=== PATIENT | male | born 1935 | race Caucasian/White ===

== ENCOUNTER 2016-07-28 16:15 | Inpatient (IN) | payer MEDICARE, BC ==
[2016-07-28] MEDS ORDERED: FUROSEMIDE 10 MG/ML 4 ML VIAL IV STA (16:38)
--- NOTE | 2016-07-28 16:46 | ED ---
SOB HPI - General Chief Complaint: Shortness of Breath Stated Complaint: SOB, EDEMA Time Seen by Provider: 07/28/16 16:29 Source: patient Mode of arrival: EMS Limitations: altered mental status, physical limitation - History of Present Illness Initial Comments: Presented with shortness of breath and confusion his caregiver noticed that he has gained 37 pounds of weight over the last few weeks and he has a massive swelling of his lower extremities as well as swelling of his abdomen he does have a history of heart disease as well as heart valve disease he status post surgery as well. Denies any chest pain he denies any pleuritic chest pain denies any fever no chills he is not coughing up a bunch of phlegm. No abdominal pain no constipation or diarrhea no frequency urgency dysuria his legs are swollen bilaterally and he said it's chronic - Related Data Home Medications Medication Instructions Recorded Confirmed Allopurinol [Zyloprim] 300 mg PO DAILY 06/06/16 07/28/16 Ascorbic Acid [Vitamin C] 1,000 mg PO HS 06/06/16 07/28/16 Carvedilol 3.125 mg PO DAILY 06/06/16 07/28/16 Cholecalciferol [Vitamin D3] 1,000 unit PO DAILY 06/06/16 07/28/16 Acetaminophen Tab [Tylenol Tab] 650 mg PO Q4H PRN 07/28/16 07/28/16 Aspirin 81 mg PO HS 07/28/16 07/28/16 Bisacodyl 10 mg RECTAL DAILY PRN 07/28/16 07/28/16 Cyanocobalamin [Vitamin B-12] 500 mcg PO HS 07/28/16 07/28/16 Ferrous Sulfate [Feosol] 325 mg PO TID@0700,1200,1700 07/28/16 07/28/16 Furosemide [Lasix] 60 mg PO BID 07/28/16 07/28/16 Ipratropium-Albuterol Nebulize 3 ml INHALATION RT-Q6H PRN 07/28/16 07/28/16 [Duoneb 0.5 mg-3 mg/3 ml Soln] Levothyroxine Sodium [Levoxyl] 50 mcg PO DAILY 07/28/16 07/28/16 Lidocaine 5% Oint [Xylocaine 5% 1 applic TOPICAL TID 07/28/16 07/28/16 Oint] Melatonin 3 mg PO HS 07/28/16 07/28/16 Nasal Wash 3 spray EA NOSTRIL BID 07/28/16 07/28/16 Nitroglycerin Sl Tabs [Nitrostat] 0.4 mg SUBLINGUAL Q5M PRN 07/28/16 07/28/16 Potassium Chloride [Klor-Con 20] 20 meq PO BID 07/28/16 07/28/16 Sennosides [Senna] 8.6 mg PO DAILY PRN 07/28/16 07/28/16 Warfarin Sodium [Coumadin] 4 mg PO HS 07/28/16 07/28/16 guaiFENesin SYRUP 100MG/5ML 200 mg PO Q6H 07/28/16 07/28/16 [Robitussin] Allergies Allergy/AdvReac Type Severity Reaction Status Date / Time egg Allergy Unknown Verified 07/28/16 16:30 peanut Allergy Unknown Verified 07/28/16 16:30 Penicillins Allergy Unknown Verified 07/28/16 16:30 Review of Systems ROS Statement: Those systems with pertinent positive or pertinent negative responses have been documented in the HPI. ROS Other: All systems not noted in ROS Statement are negative. Past Medical History Past Medical History: Atrial Fibrillation, Heart Failure, Renal Disease, Skin Disorder Additional Past Medical History / Comment(s): shingles (healed) History of Any Multi-Drug Resistant Organisms: None Reported Past Surgical History: Cardiac Valve Replacement Additional Past Surgical History / Comment(s): cardiac valve replacement Past Anesthesia/Blood Transfusion Reactions: No Reported Reaction Past Psychological History: No Psychological Hx Reported Smoking Status: Never smoker Past Alcohol Use History: Rare Past Drug Use History: None Reported - Past Family History Father Family Medical History: Congestive Heart Failure (CHF) General Exam - General Exam Comments Initial Comments: General: The patient is awake and alert, in mild distress, GSS is 15. Skin: Skin is warm and dry and no rashes or lesions are noted. Eye: Pupils are equal, round and reactive to light, extra-ocular movements are intact; there is normal conjunctiva bilaterally. Ears, nose, mouth and throat: There are moist mucous membranes and no oral lesions on the trachea is midline. Neck: The neck is supple, there is no tenderness Cardiovascular: S1 and S2 are irregularly irregular Respiratory: To auscultation bilateral, raccoons at the bases Gastrointestinal: Soft, seems distended, there is a lot of edema Back: There is no tenderness to palpation in the midline. There is no obvious deformity. Musculoskeletal: +3 to +4 Emad of the bilateral legs Neurological: CN II-XII intact, Cranial nerves III through XII are intact. There are no obvious motor or sensory deficits. Coordination appears grossly intact. Speech is normal. Psychiatric: Cooperative, appropriate mood & affect, normal judgment. Limitations: altered mental status, physical limitation Course Vital Signs 07/28/16 07/28/16 07/28/16 16:18 17:33 17:43 Temperature 96.9 F L Pulse Rate 80 78 Pulse Rate [ 78 Solution Engineer ] Respiratory 18 20 18 Rate Blood Pressure 93/51 105/65 O2 Sat by Pulse 97 91 L Oximetry 07/28/16 07/28/16 19:09 20:04 Temperature Pulse Rate 72 79 Pulse Rate [ Solution Engineer ] Respiratory 16 20 Rate Blood Pressure 99/66 106/83 O2 Sat by Pulse 94 L 95 Oximetry KG is atrial fibrillation now Ms. Drew rate is 73 his MD interval is, do QRS duration is 156 QT/QTc is 440/484, this EKG was compared with the old EKG this is a right bundle branch block and left posterior fascicular block as well his EKG is quite similar to his old EKG which is from changes noticed Medical Decision Making - Lab Data Result diagrams: 07/28/16 16:22 07/28/16 16:22 Lab Results 07/28/16 07/28/16 07/28/16 Range/Units 16:22 16:22 16:22 WBC 5.5 (3.8-10.6) k/uL RBC 2.52 L (4.30-5.90) m/uL Hgb 8.2 L (13.0-17.5) gm/dL Hct 26.9 L (39.0-53.0) % MCV 106.9 H D (80.0-100.0) fL MCH 32.5 (25.0-35.0) pg MCHC 30.4 L (31.0-37.0) g/dL RDW 24.5 H (11.5-15.5) % Plt Count 211 (150-450) k/uL Neutrophils % 63 % Lymphocytes % 18 % Monocytes % 8 % Eosinophils % 6 % Basophils % 1 % Neutrophils # 3.4 (1.3-7.7) k/uL Lymphocytes # 1.0 (1.0-4.8) k/uL Monocytes # 0.5 (0-1.0) k/uL Eosinophils # 0.3 (0-0.7) k/uL Basophils # 0.1 (0-0.2) k/uL Polychromasia Present Hypochromasia Moderate Poikilocytosis (manual Present Anisocytosis Marked Macrocytosis Marked Target Cells Present PT (9.0-12.0) sec INR (<1.1) APTT (22.0-30.0) sec Sodium 138 (137-145) mmol/L Potassium 4.5 (3.5-5.1) mmol/L Chloride 99 (98-107) mmol/L Carbon Dioxide 29 (22-30) mmol/L Anion Gap 10 mmol/L BUN 44 H (9-20) mg/dL Creatinine 1.53 H (0.66-1.25) mg/dL Est GFR (MDRD) Af Amer 53 (>60 ml/min/1.73 sqM) Est GFR (MDRD) Non-Af 44 (>60 ml/min/1.73 sqM) Glucose 100 H (74-99) mg/dL Calcium 8.7 (8.4-10.2) mg/dL Total Bilirubin 1.6 H (0.2-1.3) mg/dL AST 40 (17-59) U/L ALT 30 (21-72) U/L Alkaline Phosphatase 96 (38-126) U/L Total Creatine Kinase 47 L (55-170) U/L CK-MB (CK-2) 1.3 (0.0-2.4) ng/mL CK-MB (CK-2) Rel Index 2.8 Troponin I 0.020 (0.000-0.034) ng/mL NT-Pro-B Natriuret Pep pg/mL Total Protein 6.1 L (6.3-8.2) g/dL Albumin 2.9 L (3.5-5.0) g/dL 07/28/16 07/28/16 Range/Units 16:22 16:22 WBC (3.8-10.6) k/uL RBC (4.30-5.90) m/uL Hgb (13.0-17.5) gm/dL Hct (39.0-53.0) % MCV (80.0-100.0) fL MCH (25.0-35.0) pg MCHC (31.0-37.0) g/dL RDW (11.5-15.5) % Plt Count (150-450) k/uL Neutrophils % % Lymphocytes % % Monocytes % % Eosinophils % % Basophils % % Neutrophils # (1.3-7.7) k/uL Lymphocytes # (1.0-4.8) k/uL Monocytes # (0-1.0) k/uL Eosinophils # (0-0.7) k/uL Basophils # (0-0.2) k/uL Polychromasia Hypochromasia Poikilocytosis (manual Anisocytosis Macrocytosis Target Cells PT 39.7 H (9.0-12.0) sec INR 4.0 (<1.1) APTT 33.3 H (22.0-30.0) sec Sodium (137-145) mmol/L Potassium (3.5-5.1) mmol/L Chloride (98-107) mmol/L Carbon Dioxide (22-30) mmol/L Anion Gap mmol/L BUN (9-20) mg/dL Creatinine (0.66-1.25) mg/dL Est GFR (MDRD) Af Amer (>60 ml/min/1.73 sqM) Est GFR (MDRD) Non-Af (>60 ml/min/1.73 sqM) Glucose (74-99) mg/dL Calcium (8.4-10.2) mg/dL Total Bilirubin (0.2-1.3) mg/dL AST (17-59) U/L ALT (21-72) U/L Alkaline Phosphatase (38-126) U/L Total Creatine Kinase (55-170) U/L CK-MB (CK-2) (0.0-2.4) ng/mL CK-MB (CK-2) Rel Index Troponin I (0.000-0.034) ng/mL NT-Pro-B Natriuret Pep 7470 pg/mL Total Protein (6.3-8.2) g/dL Albumin (3.5-5.0) g/dL Disposition Clinical Impression: Congestive heart failure, Anasarca, Renal insufficiency Disposition: ADMITTED IP TO THIS HOSP Condition: Fair
[2016-07-28 16:59] LABS: Anisocytosis Marked; Basophils # (A) 0.1 k/uL (0-0.2); Basophils % (A) 1 %; CH 32.7; Eosinophils # (A) 0.3 k/uL (0-0.7); Eosinophils % (A) 6 %; HCT 26.9 % (39.0-53.0); HDW 3.14; HGB 8.2 gm/dL (13.0-17.5); Hypochromasia Moderate; Luc # (Auto) 0.24; Luc % (Auto) 4; Lymphocytes % (A) 18 %; MCH 32.5 pg (25.0-35.0); MCHC 30.4 g/dL (31.0-37.0); Macrocytosis Marked; Mean Platelet Volume 7.3; Monocytes # (A) 0.5 k/uL (0-1.0); Monocytes % (A) 8 %; Neutrophils # (A) 3.4 k/uL (1.3-7.7); Neutrophils % (A) 63 %; RBC 2.52 m/uL (4.30-5.90); RDW 24.5 % (11.5-15.5); WBC 5.5 k/uL (3.8-10.6); WBC (Perox) 5.81
[2016-07-28 17:00] LABS: MCV 106.9 fL (80.0-100.0)
[2016-07-28 17:05] LABS: Partial Thromboplastin Time 33.3 sec (22.0-30.0); Prothrombin Time 39.7 sec (9.0-12.0)
[2016-07-28 17:12] LABS: Calcium 8.7 mg/dL (8.4-10.2); Potassium 4.5 mmol/L (3.5-5.1); Total Bilirubin 1.6 mg/dL (0.2-1.3); Total Protein 6.1 g/dL (6.3-8.2)
[2016-07-28 17:30] LABS: Creatine Kinase MB 1.3 ng/mL (0.0-2.4); Troponin I 0.02 ng/mL (0.000-0.034)
[2016-07-28 17:52] LABS: Polychromasia Present
[2016-07-28 17:53] LABS: Target Cells Present
--- NOTE | 2016-07-28 18:01 | XR ---
EXAMINATION TYPE: XR chest 2V DATE OF EXAM: 07/28/2016 5:56 PM COMPARISON: 06/06/2016 HISTORY: Altered mental status. Difficulty breathing. TECHNIQUE: Frontal and lateral views of the chest are obtained. FINDINGS: There is a poor inspiration. There is pulmonary vascular congestion. There is some bluntin g of the costophrenic angles and fluid in the fissures. There are sternal wires. There is a valve pro sthesis. There is osteopenia. There are multiple old rib fractures. IMPRESSION: Cardiomegaly. Pulmonary congestion consistent with congestive heart failure. There is un derlying pulmonary fibrosis. Loculated right pleural fluid. Chest appears the same or slightly worse than last exam.
[2016-07-28] MEDS ORDERED: NITROGLYCERIN SL TABS 0.4 MG TAB SUBLINGUAL PRN ×2 (21:19→21:24)
[2016-07-28] MEDS ORDERED: BISACODYL 10 MG SUPP RECTAL PRN (21:24)
[2016-07-28] MEDS ORDERED: SENNOSIDES 8.6 MG TAB PO PRN (21:24)
[2016-07-28] MEDS ORDERED: NON-FORMULARY DRUG (Lidocaine 5% Oint 1 APPLIC) TOPICAL SCH (22:00)
[2016-07-28 23:01] LABS: Creatine Kinase MB 1.4 ng/mL (0.0-2.4); Troponin I 0.022 ng/mL (0.000-0.034)
[2016-07-28] MEDS: ASPIRIN 81 MG CHEW PO SCH (23:16)
[2016-07-29] MEDS: guaiFENesin SYRUP 100MG/5ML 200 MG/10 ML CUP PO SCH ×5 (00:01→23:48)
[2016-07-29] MEDS: LEVOTHYROXINE 50 MCG TAB PO SCH (05:30)
[2016-07-29 06:26] LABS: Cholesterol 89 mg/dL (<200); HDL Cholesterol 18 mg/dL (40-60); Triglycerides 60 mg/dL (<150)
[2016-07-29 06:37] LABS: Creatine Kinase MB 1.4 ng/mL (0.0-2.4); Troponin I 0.026 ng/mL (0.000-0.034)
[2016-07-29] MEDS: FERROUS SULFATE 325 MG TAB PO SCH ×3 (07:43→17:11)
[2016-07-29] MEDS: ACETAMINOPHEN TAB 325 MG TAB PO PRN ×2 (07:43→14:04)
[2016-07-29] MEDS ORDERED: FUROSEMIDE 10 MG/ML 4 ML VIAL IV SCH ×2 (09:00→11:00)
[2016-07-29] MEDS ORDERED: ASPIRIN 325 MG TAB PO SCH (09:00)
[2016-07-29 10:13] LABS: INR 3.7 (<1.1); Prothrombin Time 35.7 sec (9.0-12.0)
[2016-07-29] MEDS: CHOLECALCIFEROL 1,000 UNIT TAB PO SCH (11:39)
[2016-07-29] MEDS: ALLOPURINOL 300 MG TAB PO SCH (11:39)
--- NOTE | 2016-07-29 11:58 | P.CRDCN ---
History of Present Illness Consult date: 07/29/16 Reason for Consult (text): CHF Chief complaint: shortness of breath and edema History of present illness: Is an 81-year-old gentleman with a known history of atrial fibrillation, mitral valve repair, hypothyroidism, recent hospitalization for congestive heart failure in June of this year, and known history of severe aortic stenosis for which he has been felt not to be a candidate for TAVR after evaluation by [facility]. Presented to the emergency department from [facility] with increasing confusion, shortness of breath and edema as well as a 37 pound weight gain in the last month. Upon examination this morning, patient is awake and oriented to self. He has been running a low blood pressure in the 80s systolic. And has been transferred to selective care unit for closer monitoring. He's been ordered to receive Lasix 40 mg IV push daily. Laboratory values showed hemoglobin 8.2, INR 4.0, B1 44 and creatinine 1.53 and a BNP of 7470. Troponins have been negative at 0.02, 0.022, and 0.026. He had a chest x-ray on admission that showed pulmonary congestion consistent with CHF as well as underlying pulmonary fibrosis and loculated right pleural fluid. This study was felt to be the same or slightly worse from previous. EKG showed patient to be in atrial fibrillation with controlled ventricular response and a right bundle branch block. Most recent echo done in June of this year showed an ejection fraction of 50-55% with severe aortic stenosis as well as mitral valve stenosis, moderate to severe tricuspid regurgitation and severe pulmonary hypertension. Past Medical History Past Medical History: Atrial Fibrillation, Heart Failure, Renal Disease, Skin Disorder Additional Past Medical History / Comment(s): shingles (healed) History of Any Multi-Drug Resistant Organisms: None Reported Past Surgical History: Cardiac Valve Replacement Additional Past Surgical History / Comment(s): cardiac valve replacement Past Anesthesia/Blood Transfusion Reactions: No Reported Reaction Past Psychological History: No Psychological Hx Reported Smoking Status: Never smoker Past Alcohol Use History: Rare Past Drug Use History: None Reported - Past Family History Father Family Medical History: Congestive Heart Failure (CHF) Medications and Allergies Home Medications Medication Instructions Recorded Confirmed Type Allopurinol [Zyloprim] 300 mg PO DAILY 06/06/16 07/28/16 History Ascorbic Acid [Vitamin C] 1,000 mg PO HS 06/06/16 07/28/16 History Carvedilol 3.125 mg PO DAILY 06/06/16 07/28/16 History Cholecalciferol [Vitamin D3] 1,000 unit PO DAILY 06/06/16 07/28/16 History Acetaminophen Tab [Tylenol Tab] 650 mg PO Q4H PRN 07/28/16 07/28/16 History Aspirin 81 mg PO HS 07/28/16 07/28/16 History Bisacodyl 10 mg RECTAL DAILY PRN 07/28/16 07/28/16 History Cyanocobalamin [Vitamin B-12] 500 mcg PO HS 07/28/16 07/28/16 History Ferrous Sulfate [Feosol] 325 mg PO TID@0700,1200,1700 07/28/16 07/28/16 History Furosemide [Lasix] 60 mg PO BID 07/28/16 07/28/16 History Ipratropium-Albuterol Nebulize 3 ml INHALATION RT-Q6H PRN 07/28/16 07/28/16 History [Duoneb 0.5 mg-3 mg/3 ml Soln] Levothyroxine Sodium [Levoxyl] 50 mcg PO DAILY 07/28/16 07/28/16 History Lidocaine 5% Oint [Xylocaine 5% 1 applic TOPICAL TID 07/28/16 07/28/16 History Oint] Melatonin 3 mg PO HS 07/28/16 07/28/16 History Nasal Wash 3 spray EA NOSTRIL BID 07/28/16 07/28/16 History Nitroglycerin Sl Tabs [Nitrostat] 0.4 mg SUBLINGUAL Q5M PRN 07/28/16 07/28/16 History Potassium Chloride [Klor-Con 20] 20 meq PO BID 07/28/16 07/28/16 History Sennosides [Senna] 8.6 mg PO DAILY PRN 07/28/16 07/28/16 History Warfarin Sodium [Coumadin] 4 mg PO HS 07/28/16 07/28/16 History guaiFENesin SYRUP 100MG/5ML 200 mg PO Q6H 07/28/16 07/28/16 History [Robitussin] Allergies Allergy/AdvReac Type Severity Reaction Status Date / Time egg Allergy Unknown Verified 07/28/16 16:30 peanut Allergy Unknown Verified 07/28/16 16:30 Penicillins Allergy Unknown Verified 07/28/16 16:30 Physical Exam Vitals: Vital Signs Temp Pulse Pulse Resp BP BP BP 07/29/16 09:55 80 20 89/53 07/29/16 08:12 83/54 07/29/16 07:00 96.8 F L 74 18 80/49 07/29/16 00:00 18 07/28/16 23:00 97.2 F L 77 18 91/66 07/28/16 21:43 97.0 F L 80 20 106/68 Pulse Ox 07/29/16 09:55 96 07/29/16 08:12 07/29/16 07:00 96 07/29/16 00:00 07/28/16 23:00 98 07/28/16 21:43 95 Intake and Output 07/28/16 07/29/16 07/29/16 22:59 06:59 14:59 Output Total 300 60 Balance -300 -60 Output: Urine 300 60 Other: Voiding Method Indwelling Catheter Weight 108 kg PHYSICAL EXAMINATION: HEENT: Head is atraumatic, normocephalic. Pupils equal, round. Neck is supple. There is elevated jugular venous pressure. HEART EXAMINATION: Heart sounds irregularly irregular, S1 and S2 with a systolic murmur. CHEST EXAMINATION: Lungs reveal crackles to mid lung. No chest wall tenderness is noted on palpation or with deep breathing. ABDOMEN: Soft, nontender. Bowel sounds are heard. No organomegaly noted. Vance catheter in place with blood-tinged urine EXTREMITIES: There is evidence of 3-4+ lower extremity edema with Tk wrap in place to left lower extremity. NEUROLOGIC patient is awake, oriented to self only. . Results 07/29/16 05:29 07/29/16 05:29 Cardiac Enzymes 07/28/16 07/29/16 Range/Units 22:24 05:29 CK-MB (CK-2) 1.4 1.4 (0.0-2.4) ng/mL Troponin I 0.022 0.026 (0.000-0.034) ng/mL Coagulation 07/29/16 Range/Units 05:29 PT 35.7 H (9.0-12.0) sec Lipids 07/29/16 Range/Units 05:29 Triglycerides 60 (<150) mg/dL Cholesterol 89 (<200) mg/dL HDL Cholesterol 18 L (40-60) mg/dL Current Medications Generic Name Dose Route Start Last Admin Trade Name Freq PRN Reason Stop Dose Admin Acetaminophen 650 mg 07/28/16 21:24 07/29/16 07:43 Tylenol Tab PO 650 mg Q4H PRN Administration Pain Albuterol/Ipratropium 3 ml 07/28/16 21:24 Duoneb 0.5 Mg-3 Mg/3 Ml Soln INHALATION RT-Q6H PRN Shortness Of Breath Allopurinol 300 mg 07/29/16 09:00 07/29/16 11:39 Zyloprim PO 300 mg DAILY LOGAN Administration Ascorbic Acid 1,000 mg 07/29/16 21:00 Vitamin C PO HS [facility] Aspirin 81 mg 07/28/16 22:00 07/28/16 23:16 Aspirin PO 81 mg HS LOGAN Administration Bisacodyl 10 mg 07/28/16 21:24 Dulcolax RECTAL DAILY PRN Constipation Carvedilol 3.125 mg 07/29/16 09:00 Coreg PO DAILY [facility] Cholecalciferol 1,000 unit 07/29/16 12:00 07/29/16 11:39 Vitamin D3 PO 1,000 unit DAILY@1200 [facility] Administration Cyanocobalamin 500 mcg 07/29/16 21:00 Vitamin B-12 PO HS [facility] Ferrous Sulfate 325 mg 07/29/16 07:00 07/29/16 11:38 Feosol PO 325 mg TID@0700,1200,1700 [facility] Administration Furosemide 40 mg 07/29/16 11:00 Lasix IV Q12HR [facility] Guaifenesin 200 mg 07/29/16 00:00 07/29/16 05:30 Robitussin PO 07/31/16 18:01 Not Given Q6HR [facility] Levothyroxine Sodium 50 mcg 07/29/16 06:30 07/29/16 05:30 Synthroid PO 50 mcg DAILY@0630 LOGAN Administration Melatonin 3 mg 07/29/16 21:00 Melatonin PO HS [facility] Nitroglycerin 0.4 mg 07/28/16 21:24 Nitrostat SUBLINGUAL Q5M PRN Chest Pain Non-Formulary Medication 1 applic 07/28/16 22:00 Lidocaine 5% Oint TOPICAL TID [facility] Potassium Chloride 20 meq 07/29/16 09:00 K-Dur 20 PO BID LOGAN Senna 8.6 mg 07/28/16 21:24 Senokot PO DAILY PRN Constipation Intake and Output 07/28/16 07/29/16 07/29/16 22:59 06:59 14:59 Output Total 300 60 Balance -300 -60 Output: Urine 300 60 Other: Voiding Method Indwelling Catheter Weight 108 kg Assessment and Plan Plan: Assessment and plan #1 congestive heart failure secondary to severe aortic stenosis. #2 chronic atrial fibrillation, anticoagulated on Coumadin, currently on hold with INR 4.0 #3 hypothyroidism #4 renal insufficiency #5 shortness of breath and edema #6 anemia, which may be contributing to CHF exacerbation Patient has been transferred to ICU as a Selective care overflow. We will start the patient on dopamine and lasix drip. Titrate Dopamine to maintain blood pressure. Continue to hold coumadin and recheck INR in the morning. We will continue to monitor renal function, INRs, daily weights, intake and output. MEDICARE COORDINATOR note has been reviewed, I agree with a documented findings and plan of care. Patient was seen and examined.
[2016-07-29 12:01] LABS: Calcium 8.9 mg/dL (8.4-10.2); Potassium 4.2 mmol/L (3.5-5.1)
[2016-07-29 12:04] LABS: Anisocytosis Marked; CH 32.1; CHCM 28.8; HCT 27.7 % (39.0-53.0); HDW 3.03; HGB 8.1 gm/dL (13.0-17.5); Hypochromasia Marked; MCH 33.2 pg (25.0-35.0); MCHC 29.4 g/dL (31.0-37.0); Macrocytosis Marked; Mean Platelet Volume 8.3; RBC 2.45 m/uL (4.30-5.90); RDW 24.6 % (11.5-15.5); WBC 7.1 k/uL (3.8-10.6)
[2016-07-29 12:07] LABS: MCV 112.9 fL (80.0-100.0)
[2016-07-29] MEDS: FUROSEMIDE 250 MG in SODIUM CHLORIDE 0.9% 225 ML IVP SCH ×2 (13:22→17:55)
[2016-07-29] MEDS: DEXTROSE/WATER 1 500ML.BAG with DOPamine DRIP 800 MG IV SCH (13:22)
[2016-07-29] MEDS: IPRATROPIUM-ALBUTEROL 3 ML NEB INHALATION PRN ×2 (14:06→18:41)
--- NOTE | 2016-07-29 14:32 | XR ---
EXAMINATION TYPE: XR chest 1V portable DATE OF EXAM: 07/29/2016 2:20 PM COMPARISON: 07/28/2016 INDICATION: Short of breath TECHNIQUE: Single frontal view of the chest is obtained. FINDINGS: The heart size is normal. Pulmonary vasculature is prominent Mild infiltrates in the right midlung. Left lower lobe infiltrate is present. Findings are stable over the interval. Sternotomy wires are present. Cardiac valve surgery. EKG leads lie over the chest. IMPRESSION: 1. Bilateral lung infiltrates. Correlate for pneumonia and pulmonary edema. Exam is stable from matt rison
--- NOTE | 2016-07-29 14:33 | XR ---
EXAMINATION TYPE: XR shoulder complete LT DATE OF EXAM: 07/29/2016 2:20 PM COMPARISON: NONE HISTORY: Pain TECHNIQUE: Left shoulder examined in 2 views FINDINGS: The humeral head articulates with the glenoid. Acromioclavicular junction and minimal hypertrophy. No significant spurring is evident. No acute fractures or dislocations are evident. A follow up study can be performed 7-10 days from acute trauma for continued pain. IMPRESSION: 1. No suspicious changes
[2016-07-29] MEDS ORDERED: LORazepam 2 MG/ML SYRINGE ONE (16:03)
[2016-07-29] MEDS: CARVEDILOL 3.125 MG TAB PO SCH (16:13)
[2016-07-29] MEDS: POTASSIUM CHLORIDE ER 20 MEQ TAB.ER PO SCH ×2 (16:14→20:38)
[2016-07-29] MEDS: LORazepam 2 MG/ML SYRINGE IV PRN (16:15)
[2016-07-29] MEDS: MORPHINE SULFATE 2 MG/ML SYRINGE IVP PRN ×2 (17:58→22:14)
--- NOTE | 2016-07-29 20:23 | HP ---
An 81-year-old with known history of atrial fibrillation and mitral valve repair. Patient has severe pulmonary hypertension, came in with congestive heart failure exacerbation and patient has significant pulmonary edema. Patient was short of breath and immediately after receiving Lasix, patient's status worsened and patient was subsequently transferred to selective and then to ICU and patient will need BiPAP at this point of time. Patient will be started on BiPAP. Patient has acute hypoxic respiratory failure secondary to congestive heart failure exacerbation with superimposed severe pulmonary hypertension almost more than systolic pressures. Patient's RVSP is around 133. Patient's prognosis is extremely poor. I discussed with his niece, who is the Power of Senior Wealth Advisor. Patient is excessively ( ) and short of breath to give me any to give his opinion regarding his overall goals of care. Patient apparently is DO NOT RESUSCITATE and patient has severe aortic stenosis. Patient has mitral regurgitation and history of mitral valve repair and patient's prognosis is extremely poor. I discussed with the niece regarding his overall goals of care if he does not improve by tomorrow, patient is more appropriate for comfort care. Patient was evaluated for TAVR at [facility]. Patient is not a candidate for that. Patient's ejection fraction during his previous hospitalization appears to be within normal limits, but patient severe right-sided heart failure, severe pulmonary hypertension. Patient also appears to have underlying pulmonary fibrosis. Chest x-ray is consistent with congestive heart failure. Patient was having orthopnea, PND, beyond which I am not able to get much of the history from the patient. Maybe will obtain an ABG, consulting volunteer services manager. Patient will be started on BiPAP. Patient is presently on dobutamine drip as well as IV Lasix. The past medical history is significant for atrial fibrillation heart, failure. Patient appears to have some CKD stage 2 and patient has severe pulmonary hypertension, atrial fibrillation, mitral valve repair, mitral stenosis. PAST SURGICAL HISTORY: As mentioned above. SOCIAL HISTORY: Denied any smoking, alcohol abuse or any drug abuse. FAMILY HISTORY: Father had congestive heart failure. HOME MEDICATIONS: 1. Allopurinol. 2. Ascorbic acid. 3. Coreg. 4. Cholecalciferol. 5. Bisacodyl. 6. Ferrous sulfate. 7. Lasix. 8. Ipratropium. 9. Levothyroxine. 10. Lidocaine. 11. Melatonin. 12. Potassium chloride and 13. Coumadin for atrial fibrillation. ALLERGIES: ALLERGIC TO EGGS, PEANUTS AND PENICILLIN. PHYSICAL EXAMINATION: Temperature 97.3, pulse of 86, respiratory rate of 20, blood pressure is 107/71 with a dopamine drip and saturating at 95% on BiPAP. GENERAL: The patient is in respiratory distress without BiPAP. I saw him before BiPAP and patient's blood pressure is fairly stable with a dopamine drip patient is on IV Lasix as well. HEENT: Pupils are round and equally reacting to light. EOMI. No scleral icterus. No conjunctival pallor. Normocephalic, atraumatic. No pharyngeal erythema. No thyromegaly. CARDIOVASCULAR: S1 and S2 present. Patient does have elevated JVD. Patient has irregularly irregular rhythm, mild tachycardia because of dopamine, probably. LUNGS: Bibasilar crackles were appreciated. No wheezing. Fairly good air entry into bilateral lung correa. Patient has 2+ pitting pedal edema. ABDOMEN: Soft, nontender, nondistended, normoactive bowel sounds. No palpable organomegaly. MUSCULOSKELETAL: No joint swelling or deformity. EXTREMITIES: No cyanosis, clubbing, or pedal edema. NEUROLOGICAL: Gross neurological examination did not reveal any focal deficits. SKIN: No rashes. LABORATORY DATA: CBC, CMP are abnormal for the elevated macrocytic anemia and BUN of 48, creatinine of 1.57. His baseline creatinine appears to be around 1.5, best being 1.3 in August of this year. ASSESSMENT AND PLAN: 1. Acute hypoxic respiratory failure secondary to congestive heart failure exacerbation. The patient is requiring bi-level positive airway pressure. 2. Congestive heart failure, chronic diastolic dysfunction and right-sided heart failure as well and aortic stenosis is making him to have pulmonary edema. Patient does not have any systolic dysfunction. Patient is on IV Lasix drip at this point of time. 3. Severe pulmonary hypertension. Patient most probably will need interleukin therapy for this. I will go ahead and consult Pulmonology. Patient's prognosis is extremely poor because of the severe multivalvular disease along with severe pulmonary hypertension. Patient is appropriate for comfort care. Same thing was discussed with the family. 4. Hypothyroidism. 5. Chronic kidney disease stage 3. 6. Chronic atrial fibrillation, fairly rate controlled in spite of dobutamine drip. Patient is on Coumadin anticoagulation with supratherapeutic INR, because of which Coumadin will be held. 7. Shock. Appears to be cardiogenic shock. 8. His CODE STATUS is DO NOT RESUSCITATE. PLAN: As mentioned above in the interval history, patient's prognosis is extremely poor. Patient is appropriate for comfort care or hospice. Critical care time spent 90mins. MTDD
[2016-07-29] MEDS: ASPIRIN 81 MG CHEW PO SCH (20:38)
[2016-07-29] MEDS: MELATONIN 3 MG TABLET PO SCH (20:38)
[2016-07-29] MEDS: CYANOCOBALAMIN 500 MCG TAB PO SCH (20:38)
[2016-07-29] MEDS: ASCORBIC ACID 500 MG TAB PO SCH (20:38)
[2016-07-29] MEDS ORDERED: Potassium Replacement Protocol 1 EACH MISC MISCELLANE PRN (21:57)
[2016-07-29] MEDS: POTASSIUM CHLORIDE 10 MEQ, LIDOCAINE 2% INJ 10 MG in SODIUM CHLORIDE 0.9% 100 ML IV SCH ×2 (22:36→23:49)
[2016-07-30] MEDS: DEXTROSE/WATER 1 500ML.BAG with DOPamine DRIP 800 MG IV SCH
[2016-07-30] MEDS: LEVOTHYROXINE 50 MCG TAB PO SCH (05:23)
[2016-07-30] MEDS: guaiFENesin SYRUP 100MG/5ML 200 MG/10 ML CUP PO SCH ×4 (05:23→23:35)
[2016-07-30 06:03] LABS: INR 3.4 (<1.1); Prothrombin Time 32.6 sec (9.0-12.0)
[2016-07-30 06:04] LABS: Anisocytosis Marked; CH 33.1; CHCM 31.6; HCT 28.6 % (39.0-53.0); HGB 9.1 gm/dL (13.0-17.5); Hypochromasia Moderate; MCH 33.7 pg (25.0-35.0); MCHC 31.7 g/dL (31.0-37.0); Macrocytosis Marked; Mean Platelet Volume 7.9; RBC 2.69 m/uL (4.30-5.90); RDW 24.3 % (11.5-15.5); WBC 9.1 k/uL (3.8-10.6)
[2016-07-30 06:08] LABS: Anion Gap 10 mmol/L; Blood Urea Nitrogen 49 mg/dL (9-20); Calcium 8.7 mg/dL (8.4-10.2); Carbon Dioxide 28 mmol/L (22-30); Chloride 100 mmol/L (98-107); Glucose 106 mg/dL (74-99); Magnesium 2.1 mg/dL (1.6-2.3); Non-African American GFR(MDRD) 53 (>60 ml/min/1.73 sqM); Phosphorous 4.2 mg/dL (2.5-4.5); Potassium 3.8 mmol/L (3.5-5.1); Sodium 138 mmol/L (137-145)
[2016-07-30 06:16] LABS: MCV 106.3 fL (80.0-100.0)
--- NOTE | 2016-07-30 08:14 | XR ---
EXAMINATION TYPE: XR chest 1V portable DATE OF EXAM: 07/30/2016 6:54 AM Comparison: 07/29/2016 Clinical History: 81-year-old male ICU follow-up exam Findings: Sternotomy wires are present. The heart remains mildly enlarged with diffuse interstitial opacities a nd patchy areas of airspace opacity. There is some interval improved aeration at the right base and w ithin the peripheral left midlung. Continued small left pleural effusion. Impression: Cardiomegaly and continued interstitial and patchy airspace disease. Slight improvement in aeration a t the right base and left midlung. Correlate for multifocal pneumonia or CHF with pulmonary edema.
[2016-07-30] MEDS: MORPHINE SULFATE 2 MG/ML SYRINGE IVP PRN (08:32)
[2016-07-30] MEDS: POTASSIUM CHLORIDE 10 MEQ, LIDOCAINE 2% INJ 10 MG in SODIUM CHLORIDE 0.9% 100 ML IV SCH ×4 (08:33→19:55)
[2016-07-30] MEDS: CARVEDILOL 3.125 MG TAB PO SCH (08:34)
[2016-07-30] MEDS: CHOLECALCIFEROL 1,000 UNIT TAB PO SCH (08:34)
[2016-07-30] MEDS: FERROUS SULFATE 325 MG TAB PO SCH ×3 (08:34→16:31)
[2016-07-30] MEDS: ALLOPURINOL 300 MG TAB PO SCH (08:35)
[2016-07-30] MEDS: POTASSIUM CHLORIDE ER 20 MEQ TAB.ER PO SCH ×2 (08:35→19:54)
[2016-07-30] MEDS: IPRATROPIUM-ALBUTEROL 3 ML NEB INHALATION PRN ×3 (08:49→18:59)
[2016-07-30 10:20] VITALS: BMI 32.2
--- NOTE | 2016-07-30 13:53 | P.PN ---
Subjective Principal diagnosis: Severe congestive heart failure, severe aortic stenosis and severe pulmonary hypertension This is a 81-year-old gentleman with severe congestive heart failure and also severe aortic stenosis was admitted with increasing shortness of breath, pulmonary edema and hypotension. Apparently patient became hypotensive after receiving IV Lasix on the medical floor and was transferred to intensive care unit. Patient was subsequently transferred to intensive care unit and was started on a renal dose of dopamine and also IV Lasix. Patient has diuresed very well last night and had a negative balance of more than 2500. The dose of Lasix was cut back to 5 mg. Patient has a BiPAP. A chest x-ray shows some improvement and patient seemed to be feeling slightly better. I would recommend that we continue current medical therapy and follow his electrolytes closely Objective - Vital Signs Vital signs: Vital Signs Temp 97.8 F 07/30/16 12:00 Pulse 91 07/30/16 13:20 Resp 26 H 07/30/16 12:00 BP 83/55 07/30/16 12:00 Pulse Ox 96 07/30/16 12:00 Intake & Output 07/29/16 07/30/16 07/30/16 18:59 06:59 18:59 Intake Total 97.75 641.0 334.6 Output Total 770 2600 1015 Balance -672.25 -1959.0 -680.4 Weight 104.8 kg 104.8 kg Intake: IV 40 441.0 234.6 0.9 @ 10 110 40 Dextrose/Water 1 500ml. 40 221.0 144.6 bag @ 5 MCG/KG/MIN 20.25 mls/hr IV .Q24H LOGAN with DOPamine DRIP 800 mg Rx#: [id number] Furosemide 250 mg In 110 50 Sodium Chloride 0.9% 225 ml @ 10 MG/HR 10 mls/hr IVP .Q24H LOGAN Rx#: [id number] Intake, IV Titration 57.75 200 Amount Furosemide 250 mg In 57.75 Sodium Chloride 0.9% 225 ml @ 10 MG/HR 10 mls/hr IVP .Q24H LOGAN Rx#: [id number] Potassium Chloride 10 meq 200 Lidocaine 2% Inj 10 mg In Sodium Chloride 0.9% 100 ml @ 100 mls/hr IV Q1HR LOGAN Rx#:[id number] Oral 0 100 Output: Urine 770 2600 1015 Other: Voiding Method Indwelling Catheter Indwelling Catheter Indwelling Catheter - Exam GENERAL EXAM: Patient is alert and oriented and appears to be weak and frail. Moderate distress HEENT: Normocephalic. Normal reaction of pupils, equal size, normal range of extraocular motion. No erythema or exudates in the throat. NECK: No masses, no nuchal rigidity. CHEST: No chest wall deformity. LUNGS: Diminished breath sounds at bases HEART: S1 and S2 normal. Systolic murmur heard in the aortic area.. ABDOMEN: Soft SKIN: No rashes CENTRAL NERVOUS SYSTEM: No focal deficits. EXTREMITIES: Resolving edema - Labs CBC & Chem 7: 07/30/16 05:27 07/30/16 05:27 Labs: Abnormal Lab Results - Last 24 Hours (Table) 07/30/16 07/30/16 07/30/16 Range/Units 05:27 05:27 05:27 RBC 2.69 L (4.30-5.90) m/uL Hgb 9.1 L (13.0-17.5) gm/dL Hct 28.6 L (39.0-53.0) % MCV 106.3 H D (80.0-100.0) fL RDW 24.3 H (11.5-15.5) % PT 32.6 H (9.0-12.0) sec BUN 49 H (9-20) mg/dL Creatinine 1.30 H (0.66-1.25) mg/dL Glucose 106 H (74-99) mg/dL Assessment and Plan (1) Severe aortic stenosis Status: Acute (2) Congestive heart failure Status: Acute (3) Renal insufficiency Status: Acute (4) Chronic a-fib Status: Acute (5) HTN (hypertension) Status: Acute (6) S/P MVR (mitral valve repair) Status: Acute Plan: Continue current medical therapy with IV diuretics and also dopamine. Follow his electrolytes closely and family has shown interest in transferring the patient to a different facility. Prognosis is poor
--- NOTE | 2016-07-30 15:02 | P.CNPUL ---
History of Present Illness Consult date: 07/30/16 Requesting physician: Loretta Agrawal Chief complaint: Shortness of breath History of present illness: This is an 81-year-old white male with history of multiple medical problems including chronic atrial fibrillation, severe aortic stenosis, previous history of mitral valve repair, history of severe secondary pulmonary hypertension, hypothyroidism, LV dysfunction and history of congestive heart failure in June of this year. Patient was felt to be not a good candidate for Tavr, at the [facility]. Patient presented to the ER from medical [facility] with multiple complaints including increased shortness of breath, significant swelling of the legs, fluid retention and 55 pound weight gain over the last 1 month, and abnormal chest x-ray showing evidence of congestive heart failure. Which is not surprising considering his cardiac history. Upon presentation, the patient was noted to have low hemoglobin of 8.2, elevated INR of 4.0, elevated pro BNP level of over 7000, creatinine of 1.53, relatively normal troponins, patient was in atrial fibrillation with controlled ventricular response, and right bundle branch block. His recent echo showed severe aortic stenosis and mitral valve stenosis as well as moderate severe tricuspid regurgitation with severe pulmonary hypertension. Patient was transferred to the ICU from [facility] at [place] because of worsening shortness of breath, and hemodynamic instability. Hence the patient was placed on dopamine, and on Lasix drip at 5 mcg/kg/m. In the last 10 hours since admission, patient was noted to be in a negative balance roughly about 2500 mL. Hence I cut down his Lasix drip to 5 mg per hour. 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 I suggested discussing this with the hospitalist and patient is hemodynamically stable enough for transfer as far as I'm concerned. Review of Systems ROS unobtainable: due to mental status Past Medical History Past Medical History: Atrial Fibrillation, Heart Failure, Renal Disease, Skin Disorder Additional Past Medical History / Comment(s): shingles (healed) history of severe aortic stenosis, mitral valve disease, tricuspid regurgitation, and severe pulmonary hypertension. History of Any Multi-Drug Resistant Organisms: None Reported Past Surgical History: Cardiac Valve Replacement Additional Past Surgical History / Comment(s): cardiac valve replacement Past Anesthesia/Blood Transfusion Reactions: No Reported Reaction Past Psychological History: No Psychological Hx Reported Smoking Status: Never smoker Past Alcohol Use History: Rare Past Drug Use History: None Reported - Past Family History Father Family Medical History: Congestive Heart Failure (CHF) Medications and Allergies Home Medications Medication Instructions Recorded Confirmed Type Allopurinol [Zyloprim] 300 mg PO DAILY 06/06/16 07/28/16 History Ascorbic Acid [Vitamin C] 1,000 mg PO HS 06/06/16 07/28/16 History Carvedilol 3.125 mg PO DAILY 06/06/16 07/28/16 History Cholecalciferol [Vitamin D3] 1,000 unit PO DAILY 06/06/16 07/28/16 History Acetaminophen Tab [Tylenol Tab] 650 mg PO Q4H PRN 07/28/16 07/28/16 History Aspirin 81 mg PO HS 07/28/16 07/28/16 History Bisacodyl 10 mg RECTAL DAILY PRN 07/28/16 07/28/16 History Cyanocobalamin [Vitamin B-12] 500 mcg PO HS 07/28/16 07/28/16 History Ferrous Sulfate [Feosol] 325 mg PO TID@0700,1200,1700 07/28/16 07/28/16 History Furosemide [Lasix] 60 mg PO BID 07/28/16 07/28/16 History Ipratropium-Albuterol Nebulize 3 ml INHALATION RT-Q6H PRN 07/28/16 07/28/16 History [Duoneb 0.5 mg-3 mg/3 ml Soln] Levothyroxine Sodium [Levoxyl] 50 mcg PO DAILY 07/28/16 07/28/16 History Lidocaine 5% Oint [Xylocaine 5% 1 applic TOPICAL TID 07/28/16 07/28/16 History Oint] Melatonin 3 mg PO HS 07/28/16 07/28/16 History Nasal Wash 3 spray EA NOSTRIL BID 07/28/16 07/28/16 History Nitroglycerin Sl Tabs [Nitrostat] 0.4 mg SUBLINGUAL Q5M PRN 07/28/16 07/28/16 History Potassium Chloride [Klor-Con 20] 20 meq PO BID 07/28/16 07/28/16 History Sennosides [Senna] 8.6 mg PO DAILY PRN 07/28/16 07/28/16 History Warfarin Sodium [Coumadin] 4 mg PO HS 07/28/16 07/28/16 History guaiFENesin SYRUP 100MG/5ML 200 mg PO Q6H 07/28/16 07/28/16 History [Robitussin] Allergies Allergy/AdvReac Type Severity Reaction Status Date / Time egg Allergy Unknown Verified 07/28/16 16:30 peanut Allergy Unknown Verified 07/28/16 16:30 Penicillins Allergy Unknown Verified 07/28/16 16:30 Physical Exam Vitals: Vital Signs Temp Pulse Pulse Resp BP Pulse Ox 07/30/16 14:09 93 L 07/30/16 13:20 91 07/30/16 13:10 89 07/30/16 12:00 97.8 F 88 26 H 83/55 96 07/30/16 11:00 80 18 95/60 98 07/30/16 10:00 89 16 70/46 92 L 07/30/16 09:05 92 07/30/16 09:00 88 18 82/58 99 07/30/16 08:52 90 07/30/16 08:00 97.6 F 89 17 88/56 95 07/30/16 07:30 87 19 116/68 96 07/30/16 07:00 87 18 110/75 95 07/30/16 06:30 94 26 H 89/62 96 07/30/16 06:00 103 H 24 81/55 93 L 07/30/16 05:30 86 18 81/60 97 07/30/16 05:00 83 18 81/55 97 07/30/16 04:30 88 20 100/69 97 07/30/16 04:00 97.8 F 97 83 20 84/57 96 07/30/16 03:30 82 18 84/63 96 07/30/16 03:15 91 19 85/61 98 07/30/16 03:00 90 22 86/59 97 07/30/16 02:45 82 17 85/56 97 07/30/16 02:30 92 16 86/55 96 07/30/16 02:15 86 19 97/58 96 07/30/16 02:00 83 19 84/54 96 07/30/16 01:45 93 6 L 126/66 96 07/30/16 01:30 86 19 95/62 97 07/30/16 01:15 95 18 86/63 98 07/30/16 01:00 102 H 18 86/58 98 07/30/16 00:45 92 17 84/58 97 07/30/16 00:30 90 16 92/57 97 07/30/16 00:15 106 H 17 95/57 97 07/30/16 00:00 98.0 F 87 17 80/56 97 07/29/16 23:58 83 19 07/29/16 23:45 97 18 93/62 99 07/29/16 23:30 95 28 H 97/66 100 07/29/16 23:15 85 17 99/64 99 07/29/16 23:00 87 19 108/67 96 07/29/16 22:45 89 22 101/62 96 07/29/16 22:30 90 20 101/63 94 L 07/29/16 22:15 91 17 101/54 96 07/29/16 22:00 89 20 98/64 97 07/29/16 21:45 92 19 107/62 95 07/29/16 21:30 91 24 132/74 96 07/29/16 21:15 93 18 103/64 96 07/29/16 21:00 93 18 97/67 94 L 07/29/16 20:45 86 17 72/52 95 07/29/16 20:30 87 19 91/63 95 07/29/16 20:15 88 17 73/53 95 07/29/16 20:00 97.9 F 87 80 19 90/57 94 L 07/29/16 19:45 82 18 90/57 94 L 07/29/16 19:08 82 07/29/16 19:00 89 19 98/66 93 L 07/29/16 18:41 84 07/29/16 18:00 85 20 104/72 95 07/29/16 17:00 79 13 110/69 96 07/29/16 16:00 97.3 F L 86 20 107/71 95 07/29/16 15:30 86 25 H 107/71 97 07/29/16 15:00 90 21 110/71 97 Intake and Output 07/29/16 07/30/16 07/30/16 22:59 06:59 14:59 Intake Total 202.95 520.8 334.6 Output Total 1525 1600 1015 Balance -1322.05 -1079.2 -680.4 Intake: IV 150.2 320.8 234.6 0.9 @ 10 30 80 40 Dextrose/Water 1 500ml. 90.2 160.8 144.6 bag @ 5 MCG/KG/MIN 20.25 mls/hr IV .Q24H LOGAN with DOPamine DRIP 800 mg Rx#: [id number] Furosemide 250 mg In 30 80 50 Sodium Chloride 0.9% 225 ml @ 10 MG/HR 10 mls/hr IVP .Q24H LOGAN Rx#: [id number] Intake, IV Titration 52.75 200 Amount Furosemide 250 mg In 52.75 Sodium Chloride 0.9% 225 ml @ 10 MG/HR 10 mls/hr IVP .Q24H LOGAN Rx#: [id number] Potassium Chloride 10 meq 200 Lidocaine 2% Inj 10 mg In Sodium Chloride 0.9% 100 ml @ 100 mls/hr IV Q1HR LOGAN Rx#:[id number] Oral 0 0 100 Output: Urine 1525 1600 1015 Other: Voiding Method Indwelling Catheter Indwelling Catheter Indwelling Catheter Weight 104.8 kg 104.8 kg Patient Weight 07/31/16 06:59 Weight 104.8 kg Physical Exam: Revealed an 81-year-old white male looks chronically ill, frail, on 50% Ventimask, and O2 saturations are marginal. Patient is not in distress. HEENT:[Neck is supple.] [No neck masses.] [No thyromegaly.] [No JVD.] Chest: [Few crackles at the bases..] Cardiac Exam: [Irregular irregular rhythm, 3/6 systolic murmur throughout the precordium. Abdomen: [Soft, nontender, no megaly, no rebound, no guarding, normal bowel sounds.] Extremities: [No clubbing, 3+ bipedal edema, no cyanosis.] Neurological Exam: Slightly confused otherwise no focal neurologic deficit. Results - Laboratory Findings CBC and BMP: 07/30/16 05:27 07/30/16 05:27 PT/INR, D-dimer PT 32.6 sec (9.0-12.0) H 07/30/16 05:27 INR 3.4 (<1.1) 12/30/16 05:27 Abnormal lab findings: Abnormal Labs 07/28/16 07/29/16 07/29/16 22:24 05:29 05:29 RBC Hgb Hct MCV MCHC RDW PT BUN Creatinine Glucose Total Creatine Kinase 38 L 42 L HDL Cholesterol 18 L 07/29/16 07/29/16 07/29/16 05:29 05:29 05:29 RBC 2.45 L Hgb 8.1 L Hct 27.7 L MCV 112.9 H D MCHC 29.4 L RDW 24.6 H PT 35.7 H BUN 48 H Creatinine 1.57 H Glucose Total Creatine Kinase HDL Cholesterol 07/30/16 07/30/16 07/30/16 05:27 05:27 05:27 RBC 2.69 L Hgb 9.1 L Hct 28.6 L MCV 106.3 H D MCHC RDW 24.3 H PT 32.6 H BUN 49 H Creatinine 1.30 H Glucose 106 H Total Creatine Kinase HDL Cholesterol - Diagnostic Findings Chest x-ray: image reviewed (Mild congestive heart failure) Assessment and Plan Plan: Impression: 1 acute on chronic congestive heart failure most likely secondary to severe aortic stenosis and pulmonary hypertension. 2 history of chronic atrial fibrillation presently on anticoagulation therapy and ventricular rate seems to be well-controlled. 3 history of multiple comorbidities including chronic renal failure, suspect cardiorenal syndrome, history of hypothyroidism, chronic anemia, and history of mitral valve surgery. Recommendation: Continue Lasix drip, continue dopamine, continue bronchodilators , continue hemodynamic support, agree with transfer plans if felt appropriate by different consultants on the case. We'll continue to follow. Time with Patient: Greater than 30
[2016-07-30] MEDS ORDERED: TERBUTALINE 1 MG/ML VIAL SQ ONE (15:44)
[2016-07-30] MEDS: FUROSEMIDE 250 MG in SODIUM CHLORIDE 0.9% 225 ML IVP SCH (16:30)
--- NOTE | 2016-07-30 17:58 | PN ---
DATE OF SERVICE: 07/30/2016 This 81-year-old gentleman, admitted with CHF, acute exacerbation, also had severe aortic stenosis. The patient also had extensive history of heart failure. The patient is being closely monitored in the ICU at this time. The patient is currently on Toprol drip and Lasix drip. Cardiology is followed the patient closely as well as Pulmonology. The most recent chest x-ray was reviewed today; it showed cardiomegaly and continued interstitial edema, evidence of CHF. Patient is likely sedated at this time. Past medical history reviewed. REVIEW OF SYSTEMS: CARDIOVASCULAR SYSTEM: No angina, palpitations. RESPIRATORY SYSTEM: As mentioned earlier. GI: No nausea, vomiting. : No dysuria. NERVOUS SYSTEM: No numbness or weakness. Current medications are reviewed and include: 1. Tylenol 650 q.4 p.r.n. 2. DuoNeb q.i.d. and p.r.n. 3. Zyloprim 300 mg daily. 4. Vitamin C 1000 mg at bedtime. 5. Aspirin 81 mg p.o. at bedtime. 6. Dulcolax 10 mg p.r.n. 7. Coreg 3.125 mg daily. 8. Vitamin D3 1000 daily. 9. Vitamin B12 500 mcg p.o. daily. 10. Iron sulfate 320 mg t.i.d. 11. Lasix daily. 12. Robitussin. 13. Synthroid. 14. Ativan. 15. Melatonin. 16. Morphine sulfate. 17. Nitrostat. 18. K-Dur. 19. Senokot. PHYSICAL EXAMINATION: Patient is alert and oriented x2. Pulse is 107, blood pressure 72/56, respiration 20, temperature 97.9, pulse ox 94% on 10 L. HEENT: Conjunctivae normal. Oral mucosa moist. NECK: Jugular venous distention at the root of the neck. CARDIOVASCULAR SYSTEM: S1 normal. S2 normal. Ejection systolic murmur present. S3 Present. No S4. RESPIRATORY SYSTEM: Breath sounds diminished at the bases. A few scattered rhonchi. No crackles. ABDOMEN: Soft, obese, nontender. No mass palpable. LEGS: Bilateral leg edema and significant swelling present. Pitting edema up to the thigh. Pulses diminished. LYMPHATICS: No lymph node palpable in neck, axilla or groin. SKIN: No ulcer, rash, bleeding. NERVOUS SYSTEM: Higher functions as mentioned earlier. Moves all 4 limbs. Mild diffuse weakness present. Lab investigations at this time show WBC 9.1, hemoglobin 9.1, MCV 106. Creatinine is 1.3. ASSESSMENT: 1. Congestive heart failure, acute exacerbation, with acute on chronic systolic and diastolic heart failure with ejection fraction 50% to 55%, with hypotension and cardiogenic shock. 2. Severe aortic stenosis with a peak mean gradient of 127/93. 3. Mitral stenosis with mitral valve area 2.3 sq cm. 4. Moderate to severe tricuspid regurgitation. 5. Severely dilated left atrium. 6. Acute hypoxic respiratory failure secondary to congestive heart failure. 7. Change in mental status, metabolic encephalopathy, secondary to congestive heart failure. 8. Severe pulmonary hypertension secondary to multi-valvular heart disease. 9. Hypothyroidism. 10. Chronic kidney disease, stage III. 11. Chronic atrial fibrillation. 12. Coumadin monitoring. 13. History of atrial fibrillation. 14. History of aortic valve replacement and mitral valve repair. 15. NO CODE, NO CPR, NO VENT. 16. Mild chronic coagulopathy on admission. 17. Hypoalbuminemia with mild to moderate protein-calorie malnutrition. RECOMMENDATIONS AND DISCUSSION: In this 81-year-old gentleman who presented with multiple complex medical issues, we will monitor the patient closely, continue the current medication, continue with symptomatic treatment. Otherwise, at this time I recommend a Lasix drip with dopamine. Continue to monitor. Medication reconciliation was noted. Closely follow with Pulmonary and Cardiology. The family also expressed wishes to be transferred to [facility] [place]. Case Management and Discharge Planning continue to work on the same. Prognosis guarded. Patient is currently NO CODE. Further recommendations to follow. Discussed with staff.
[2016-07-30] MEDS: ASPIRIN 81 MG CHEW PO SCH (19:54)
[2016-07-30] MEDS: ASCORBIC ACID 500 MG TAB PO SCH (19:54)
[2016-07-30] MEDS: CYANOCOBALAMIN 500 MCG TAB PO SCH (19:54)
[2016-07-30] MEDS: MELATONIN 3 MG TABLET PO SCH (19:55)
[2016-07-30] MEDS: DOPamine DRIP 800 MG in DEXTROSE/WATER 1 500ML.BAG IV SCH (20:07)
[2016-07-31] MEDS: MORPHINE SULFATE 2 MG/ML SYRINGE IVP PRN ×2 (02:18→21:41)
[2016-07-31 02:34] LABS: Appearance,Urine Clear (Clear); Bacteria,Urine Rare /hpf; Bilirubin,Urine Negative (Negative); Glucose,Urine (UA) Negative (Negative); Ketones,Urine Negative (Negative); Leukocyte Esterase,Urine Small (Negative); Mucus,Urine Rare /hpf; Nitrite,Urine Negative (Negative); Particle Count 2384; Protein,Urine Negative (Negative); RBC,Urine 84 /hpf (0-5); Specific Gravity,Urine 1.007 (1.001-1.035); UA Billing (MACRO vs. MICRO) MICRO; Urobilinogen,Urine <2.0 mg/dL (<2.0); WBC,Urine 11 /hpf (0-5)
[2016-07-31] MEDS: LEVOTHYROXINE 50 MCG TAB PO SCH (06:00)
[2016-07-31] MEDS: guaiFENesin SYRUP 100MG/5ML 200 MG/10 ML CUP PO SCH ×3 (06:00→17:02)
[2016-07-31] MEDS: FERROUS SULFATE 325 MG TAB PO SCH ×3 (06:00→17:02)
[2016-07-31 06:08] LABS: Anisocytosis Moderate; CH 32.6; CHCM 30.1; HCT 29.6 % (39.0-53.0); HDW 3.22; HGB 9.2 gm/dL (13.0-17.5); Hypochromasia Marked; MCH 34.2 pg (25.0-35.0); MCHC 31.2 g/dL (31.0-37.0); MCV 109.5 fL (80.0-100.0); Macrocytosis Marked; Mean Platelet Volume 7.3; RDW 23.4 % (11.5-15.5); WBC 8.7 k/uL (3.8-10.6)
[2016-07-31 06:13] LABS: Prothrombin Time 29.3 sec (9.0-12.0)
[2016-07-31 06:18] LABS: Anion Gap 11 mmol/L; Calcium 8.7 mg/dL (8.4-10.2); Carbon Dioxide 29 mmol/L (22-30); Chloride 98 mmol/L (98-107); Glucose 106 mg/dL (74-99); Non-African American GFR(MDRD) 58 (>60 ml/min/1.73 sqM); Sodium 138 mmol/L (137-145)
[2016-07-31 06:24] LABS: Potassium 4.2 mmol/L (3.5-5.1)
[2016-07-31 06:25] LABS: Blood Urea Nitrogen 44 mg/dL (9-20); Magnesium 2.1 mg/dL (1.6-2.3); Phosphorous 4.3 mg/dL (2.5-4.5)
--- NOTE | 2016-07-31 07:13 | XR ---
EXAMINATION TYPE: XR chest 1V portable DATE OF EXAM: 07/31/2016 6:33 AM COMPARISON: NONE HISTORY: Shortness of breath TECHNIQUE: Single frontal view of the chest is obtained. Findings: Sternotomy wires are present. The heart remains mildly enlarged with diffuse interstitial opacities a nd patchy areas of airspace opacity. There is some interval improved aeration at the right base and w ithin the peripheral left midlung. Continued small left pleural effusion. Impression: Cardiomegaly and continued interstitial and patchy airspace disease. Slight improvement in aeration a t the right base and left midlung. Correlate for multifocal pneumonia or CHF with pulmonary edema.
[2016-07-31] MEDS: ALLOPURINOL 300 MG TAB PO SCH (08:36)
[2016-07-31] MEDS: CARVEDILOL 3.125 MG TAB PO SCH (08:37)
[2016-07-31] MEDS: POTASSIUM CHLORIDE ER 20 MEQ TAB.ER PO SCH ×2 (08:37→20:19)
[2016-07-31] MEDS: DOPamine DRIP 800 MG in DEXTROSE/WATER 1 500ML.BAG IV SCH (11:11)
--- NOTE | 2016-07-31 12:32 | P.PN ---
Subjective Principal diagnosis: Acute congestive heart failure and hypotension This is an 81-year-old white male with history of multiple medical problems including chronic atrial fibrillation, severe aortic stenosis, previous history of mitral valve repair, history of severe secondary pulmonary hypertension, hypothyroidism, LV dysfunction and history of congestive heart failure in June of this year. Patient was felt to be not a good candidate for Tavr, at the [facility]. Patient presented to the ER from medical [place] [facility] [place] with multiple complaints including increased shortness of breath, significant swelling of the legs, fluid retention and 55 pound weight gain over the last 1 month, and abnormal chest x-ray showing evidence of congestive heart failure. Which is not surprising considering his cardiac history. Upon presentation, the patient was noted to have low hemoglobin of 8.2, elevated INR of 4.0, elevated pro BNP level of over 7000, creatinine of 1.53, relatively normal troponins, patient was in atrial fibrillation with controlled ventricular response, and right bundle branch block. His recent echo showed severe aortic stenosis and mitral valve stenosis as well as moderate severe tricuspid regurgitation with severe pulmonary hypertension. Patient was transferred to the ICU from [facility] because of worsening shortness of breath, and hemodynamic instability. Hence the patient was placed on dopamine, and on Lasix drip at 5 mcg/kg/m. In the last 10 hours since admission, patient was noted to be in a negative balance roughly about 2500 mL. Hence I cut down his Lasix drip to 5 mg per hour. 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 I suggested discussing this with the hospitalist and patient is hemodynamically stable enough for transfer as far as I'm concerned. Patient was reevaluated today on 07/31/2016, he remains on dopamine at 8 mcg/kg/ m, patient feels generally weak and miserable. His chest x-ray continues to show pulmonary edema in spite of negative fluid balance, and over the last 2 days, he is at least -4 L. Patient remains swollen and edematous. Chest x-ray continues to show evidence of congestive heart failure. Blood pressure remains marginal and I discussed his condition with Dr. Borrego will be seeing the patient shortly after my evaluation. In the meantime we kept him on dopamine and we kept him on Lasix drip at 5 mg per hour. Labs were reviewed hemoglobin is 9.2 diabetes he got is 8.7. His renal profile showed slight improvement with a BUN of 44 creatinine of 1.20. And I believe the improvement is most likely secondary to better perfusion using dopamine. His urine culture is pending. Objective - Vital Signs Vital signs: Vital Signs Temp 97.3 F L 07/31/16 08:00 Pulse 95 07/31/16 11:00 Resp 20 07/31/16 11:00 BP 85/57 07/31/16 11:00 Pulse Ox 93 L 07/31/16 11:00 Intake & Output 07/30/16 07/31/16 07/31/16 18:59 06:59 18:59 Intake Total 614.685 4807.97 328.944 Output Total 1465 1440 525 Balance -963.683 -284.03 -196.056 Weight 104.8 kg 102.6 kg Intake: IV 288.4 180 75 0.9 @ 10 120 120 50 Dextrose/Water 1 500ml. 88.4 bag @ 5 MCG/KG/MIN 20.25 mls/hr IV .Q24H [facility] with DOPamine DRIP 800 mg Rx#: [id number] Furosemide 250 mg In 80 60 25 Sodium Chloride 0.9% 225 ml @ 5 MG/HR 5 mls/hr IVP .Q24H [facility] Rx#:[id number] Intake, IV Titration 112.917 725.97 253.944 Amount DOPamine DRIP 800 mg In 525.97 253.944 Dextrose/Water 1 500ml. bag @ 5 MCG/KG/MIN 19.65 mls/hr IV .Q24H [facility] Rx#: [id number] Furosemide 250 mg In 112.917 Sodium Chloride 0.9% 225 ml @ 5 MG/HR 5 mls/hr IVP .Q24H [facility] Rx#:[id number] Potassium Chloride 10 meq 200 Lidocaine 2% Inj 10 mg In Sodium Chloride 0.9% 100 ml @ 100 mls/hr IV Q1HR [facility] Rx#:[id number] Oral 100 250 0 Output: Urine 1465 1440 525 Other: Voiding Method Indwelling Catheter Indwelling Catheter Indwelling Catheter - Exam Physical Exam: Revealed an 81-year-old white male looks chronically ill, frail, on 50% Ventimask, and O2 saturations are marginal. Patient is not in distress. HEENT:[Neck is supple.] [No neck masses.] [No thyromegaly.] [No JVD.] Chest: [Few crackles at the bases..] Cardiac Exam: [Irregular irregular rhythm, 3/6 systolic murmur throughout the precordium. Abdomen: [Soft, nontender, no megaly, no rebound, no guarding, normal bowel sounds.] Extremities: [No clubbing, 3+ bipedal edema, no cyanosis.] Neurological Exam: Slightly confused otherwise no focal neurologic deficit. - Labs CBC & Chem 7: 07/31/16 05:24 07/31/16 05:24 Labs: Abnormal Lab Results - Last 24 Hours (Table) 07/31/16 07/31/16 07/31/16 Range/Units 02:12 05:24 05:24 RBC 2.70 L (4.30-5.90) m/uL Hgb 9.2 L (13.0-17.5) gm/dL Hct 29.6 L (39.0-53.0) % MCV 109.5 H (80.0-100.0) fL RDW 23.4 H (11.5-15.5) % PT (9.0-12.0) sec BUN 44 H (9-20) mg/dL Glucose 106 H (74-99) mg/dL Urine Blood Moderate H (Negative) Ur Leukocyte Esterase Small H (Negative) Urine RBC 84 H (0-5) /hpf Urine WBC 11 H (0-5) /hpf Urine Bacteria Rare H (None) /hpf Hyaline Casts 15 H (0-2) /lpf Urine Mucus Rare H (None) /hpf 07/31/16 Range/Units 05:24 RBC (4.30-5.90) m/uL Hgb (13.0-17.5) gm/dL Hct (39.0-53.0) % MCV (80.0-100.0) fL RDW (11.5-15.5) % PT 29.3 H (9.0-12.0) sec BUN (9-20) mg/dL Glucose (74-99) mg/dL Urine Blood (Negative) Ur Leukocyte Esterase (Negative) Urine RBC (0-5) /hpf Urine WBC (0-5) /hpf Urine Bacteria (None) /hpf Hyaline Casts (0-2) /lpf Urine Mucus (None) /hpf Microbiology - Last 24 Hours (Table) 07/31/16 02:12 Urine Culture - Preliminary Urine,Catheterized Assessment and Plan Plan: Impression: 1 acute on chronic congestive heart failure most likely secondary to severe aortic stenosis and pulmonary hypertension. 2 history of chronic atrial fibrillation presently on anticoagulation therapy and ventricular rate seems to be well-controlled. 3 history of multiple comorbidities including chronic renal failure, suspect cardiorenal syndrome, history of hypothyroidism, chronic anemia, and history of mitral valve surgery. Recommendation: Continue Lasix drip, continue dopamine, continue bronchodilators , continue hemodynamic support, overall prognosis remains poor considering his profound valvular heart disease and the patient obviously is not an ideal candidate for any intervention. I would suggest seriously discussing with the family considering hospice. Time with Patient: Less than 30
[2016-07-31] MEDS: CHOLECALCIFEROL 1,000 UNIT TAB PO SCH (12:57)
--- NOTE | 2016-07-31 17:57 | PN ---
Mr. Horton is an 81-year-old male who presented with symptoms of congestive heart failure, has a known history of mitral valve surgery and severe aortic stenosis who was evaluated at [facility]. He was not felt to be a candidate for TAVR. He has preserved systolic function with severe aortic stenosis and severe pulmonary hypertension. He presented with symptoms of worsening dyspnea and peripheral edema as well as confusion. He has continued to be hypotensive on dopamine. He denies any chest pain. His urine output is good. He denies any dizziness. He continues to be on the IV Lasix drip and Coreg 3.125 mg once a day. His blood pressure is running in the 80s to 90s. His heart rate in the 90s. LUNGS: With decreased air exchange in the bases. HEART: Irregularly irregular, + 3 with systolic ejection 3/6 heard at the base, no rub. ABDOMEN: Soft, nontender. EXTREMITIES: There is 3+ edema. Lab data revealed hemoglobin 9.2. BUN and creatinine 44 and 1.2. Potassium of 4.2. INR of 3.0. IMPRESSION: 1. Severe aortic stenosis with severe congestive heart failure. He is not a candidate for TAVR. 2. Status post mitral valve surgery. 3. Hypotension related to his primary valvular disease. 4. Atrial fibrillation. RECOMMENDATIONS: From the cardiac standpoint, we will continue supportive care. Patient is not a candidate for any aggressive work-up. He may be a candidate to be evaluated for hospice care. Unfortunately, the prognosis is quite poor and that was discussed with him in detail during his last admission. I will stop his Coreg because of the low blood pressure and if needed, digoxin can be used to control his ventricular response.
--- NOTE | 2016-07-31 19:18 | PN ---
DATE OF SERVICE: 07/31/2016 This 81-year-old gentleman admitted with CHF acute exacerbation also had cardiogenic shock also. The patient is on pressor support with dopamine. The patient is on diuretics also. The patient is also confused. The patient has significant aortic stenosis. The power of claims attorney, Leonid, also is planning to transfer the patient to [facility]. Currently there are no beds or transfer available on the weekend or holiday per staff. PAST MEDICAL HISTORY: Reviewed. REVIEW OF SYSTEMS: CARDIOVASCULAR: no chest pain. GI: As mentioned. : As mentioned. NERVOUS SYSTEM: No numbness or weakness. Current medications are reviewed and include: 1. Tylenol 650 every 4 p.r.n. 2. DuoNeb q.i.d. and p.r.n. 3. Zyloprim 300 mg. 4. Vitamin C 1000 mg. 5. Aspirin 81 mg. 6. Dulcolax 10 mg daily. 7. Vitamin D3, 1000 daily. 8. B12, 500 mg at bedtime. 9. Dopamine drip. 10. Iron sulfate. 11. Lasix drip. 12. Robitussin 200 mg p.o. at bedtime. 13. Synthroid 50 mcg p.o. daily. 14. Ativan 1 mg every 4 p.r.n. 16. Morphine sulfate. 17. Nitrostat. 18. Senokot p.o. b.i.d. PHYSICAL EXAMINATION: GENERAL: The patient is alert, oriented x3. VITAL SIGNS: Pulse 92, blood pressure is 86/62, respirations 20, temperature normal, pulse ox 94 is 8 liters. HEENT: Conjunctivae normal. Oral mucosa moist. NECK: No jugular venous distention. No carotid bruit. CARDIOVASCULAR: S1 and S2. Systolic murmur. S3 present. LUNGS: Breath sounds are diminished at the bases. Few scattered rhonchi. ABDOMEN: Soft, obese. EXTREMITIES: Legs with bilateral leg edema. NERVOUS SYSTEM: Diffusely weak and emaciated. SKIN: No rashes. LABS: WBC 8.6, hemoglobin 10.2, creatinine is 1.20. UA noted. ASSESSMENT: 1. Congestive heart failure acute exacerbation with acute on chronic systolic and diastolic dysfunction. 2. Congestive heart failure. 3. Congestive heart failure with reduced ejection fraction and cardiogenic shock, on Lasix and dopamine drip. 4. Severe aortic stenosis with peak mean gradient of 127/93. 5. Mitral stenosis with mitral valve area 82.3 sq cm. 6. Moderate to severe tricuspid regurgitation, severely dilated left atrium. 7. Acute hypoxic respiratory failure second of congestive heart failure exacerbation. 8. Change in mental status, metabolic encephalopathy secondary to congestive heart failure with severe pulmonary hypertension. Continue to monitor heart disease and CHF. 9. Hypothyroidism. 10. Chronic kidney disease stage III secondary to hypertension. 11. Chronic atrial fibrillation. 12. Chronic persistent atrial fibrillation. 13. Coumadin monitoring. 14. History of aortic root replacement and mitral valve repair. 15. Mild Coumadin coagulopathy, present on admission. 16. Hypoalbuminemia with mild to moderate protein calorie malnutrition. 17. No code, no CPR, no vent. RECOMMENDATIONS: Recommend to continue current medications, continue with monitoring and symptomatic treatment. Otherwise at this time I would recommend continuing with diuretics, dopamine, continue the rest of the medications. We will hold the Coumadin today. Monitor PT-INR closely. Repeat labs. Otherwise the overall prognosis is guarded because of multiple complex medical issues which I discussed at length with staff and family at bedside. The overall prognosis is guarded because of multiple complex medical issues especially because of severe aortic stenosis for which the patient is not a candidate. Currently the patient is NO CODE. Continue to monitor. Further recommendations to follow. MTDD
[2016-07-31] MEDS: MELATONIN 3 MG TABLET PO SCH (20:19)
[2016-07-31] MEDS: ASCORBIC ACID 500 MG TAB PO SCH (20:19)
[2016-07-31] MEDS: CYANOCOBALAMIN 500 MCG TAB PO SCH (20:19)
[2016-07-31] MEDS: ASPIRIN 81 MG CHEW PO SCH (20:19)
[2016-08-01] MEDS: DOPamine DRIP 800 MG in DEXTROSE/WATER 1 500ML.BAG IV SCH (02:57)
[2016-08-01 06:13] LABS: Anion Gap 12 mmol/L; Blood Urea Nitrogen 37 mg/dL (9-20); Calcium 8.7 mg/dL (8.4-10.2); Carbon Dioxide 31 mmol/L (22-30); Chloride 100 mmol/L (98-107); Glucose 111 mg/dL (74-99); Non-African American GFR(MDRD) >60 (>60 ml/min/1.73 sqM); Potassium 3.8 mmol/L (3.5-5.1); Sodium 143 mmol/L (137-145)
[2016-08-01 06:32] LABS: Anisocytosis Moderate; CH 32.8; CHCM 30.9; HCT 30.5 % (39.0-53.0); HDW 3.45; HGB 9.4 gm/dL (13.0-17.5); Hypochromasia Moderate; MCH 33.3 pg (25.0-35.0); MCHC 30.9 g/dL (31.0-37.0); MCV 107.6 fL (80.0-100.0); Macrocytosis Marked; Mean Platelet Volume 8.1; Poikilocytosis Slight; RBC 2.84 m/uL (4.30-5.90); RDW 22.7 % (11.5-15.5); WBC 8.2 k/uL (3.8-10.6); WBC (Perox) 8.55
[2016-08-01 07:26] LABS: Add Differential Manual Differential
[2016-08-01 07:32] LABS: Band Neutrophils % 2.5 %; Myelocytes % 0.5 %; Nucleated Red Blood Cells 0 /100 WBC (0-0); Polychromasia Present; Target Cells Present; Total Cells Counted 200
[2016-08-01 07:34] LABS: Toxic Granulation Present
[2016-08-01 07:35] LABS: Toxic Vacuolation Present
[2016-08-01] MEDS: FERROUS SULFATE 325 MG TAB PO SCH ×3 (07:37→17:50)
[2016-08-01] MEDS: LEVOTHYROXINE 50 MCG TAB PO SCH (07:37)
[2016-08-01] MEDS: IPRATROPIUM-ALBUTEROL 3 ML NEB INHALATION PRN (07:49)
[2016-08-01 07:52] LABS: INR 3.1 (<1.1); Prothrombin Time 29.7 sec (9.0-12.0)
[2016-08-01] MEDS: ALLOPURINOL 300 MG TAB PO SCH (08:15)
[2016-08-01] MEDS: POTASSIUM CHLORIDE ER 20 MEQ TAB.ER PO SCH ×2 (08:15→21:19)
[2016-08-01] MEDS ORDERED: POTASSIUM CHLORIDE ER 20 MEQ TAB.ER PO SCH (09:00)
[2016-08-01] MEDS: FUROSEMIDE 250 MG in SODIUM CHLORIDE 0.9% 225 ML IVP SCH (11:47)
[2016-08-01] MEDS: CHOLECALCIFEROL 1,000 UNIT TAB PO SCH (11:47)
--- NOTE | 2016-08-01 12:58 | P.PN ---
Subjective Principal diagnosis: Acute congestive heart failure and hypotension This is an 81-year-old white male with history of multiple medical problems including chronic atrial fibrillation, severe aortic stenosis, previous history of mitral valve repair, history of severe secondary pulmonary hypertension, hypothyroidism, LV dysfunction and history of congestive heart failure in June of this year. Patient was felt to be not a good candidate for Tavr, at the [facility]. Patient presented to the ER from medical [place] [facility] [place] with multiple complaints including increased shortness of breath, significant swelling of the legs, fluid retention and 55 pound weight gain over the last 1 month, and abnormal chest x-ray showing evidence of congestive heart failure. Which is not surprising considering his cardiac history. Upon presentation, the patient was noted to have low hemoglobin of 8.2, elevated INR of 4.0, elevated pro BNP level of over 7000, creatinine of 1.53, relatively normal troponins, patient was in atrial fibrillation with controlled ventricular response, and right bundle branch block. His recent echo showed severe aortic stenosis and mitral valve stenosis as well as moderate severe tricuspid regurgitation with severe pulmonary hypertension. Patient was transferred [facility] because of worsening shortness of breath, and hemodynamic instability. Hence the patient was placed on dopamine, and on Lasix drip at 5 mcg/kg/m. In the last 10 hours since admission, patient was noted to be in a negative balance roughly about 2500 mL. Hence I cut down his Lasix drip to 5 mg per hour. 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 I suggested discussing this with the hospitalist and patient is hemodynamically stable enough for transfer as far as I'm concerned. Patient was reevaluated today on 07/31/2016, he remains on dopamine at 8 mcg/kg/ m, patient feels generally weak and miserable. His chest x-ray continues to show pulmonary edema in spite of negative fluid balance, and over the last 2 days, he is at least -4 L. Patient remains swollen and edematous. Chest x-ray continues to show evidence of congestive heart failure. Blood pressure remains marginal and I discussed his condition with Dr. Borrego will be seeing the patient shortly after my evaluation. In the meantime we kept him on dopamine and we kept him on Lasix drip at 5 mg per hour. Labs were reviewed hemoglobin is 9.2 diabetes he got is 8.7. His renal profile showed slight improvement with a BUN of 44 creatinine of 1.20. And I believe the improvement is most likely secondary to better perfusion using dopamine. His urine culture is pending. Reevaluated today on 08/01/2016, patient is now on 5 mcg/kg/m of dopamine. He seems to be hemodynamically stable, and I don't think we need to titrate the dopamine any further. Patient remains on Lasix drip at 5 mg per hour, he seems to be more comfortable, and he seems to be maintaining adequate the blood pressure and renal perfusion as long as he is on dopamine at this dose. Patient is still in negative balance over the last 2 days, labs were reviewed and his hemoglobin is 9.4. His BUN is improved down to 37 and his creatinine is also improved down to 1.10. Considering the improvement noted, I believe the patient could be transferred out to [facility] placed on a monitor bed, and keep the dopamine dose the same for the next 24 or 48 hours. We know in fact that his overall prognostic picture is poor, and eventually may have to consider hospice on this patient. Objective - Vital Signs Vital signs: Vital Signs Temp 98.4 F 08/01/16 12:00 Pulse 93 08/01/16 12:00 Resp 26 H 08/01/16 12:00 BP 78/53 08/01/16 12:00 Pulse Ox 87 L 08/01/16 08:00 Intake & Output 07/31/16 08/01/16 08/01/16 18:59 06:59 18:59 Intake Total 533.944 675.704 306.417 Output Total 1220 1045 535 Balance -686.056 -369.296 -228.583 Weight 102.058 kg Intake: IV 180 180 90 0.9 @ 10 120 120 60 Furosemide 250 mg In 60 60 30 Sodium Chloride 0.9% 225 ml @ 5 MG/HR 5 mls/hr IVP .Q24H [facility] Rx#:[id number] Intake, IV Titration 253.944 495.704 216.417 Amount DOPamine DRIP 800 mg In 253.944 495.704 Dextrose/Water 1 500ml. bag @ 5 MCG/KG/MIN 19.65 mls/hr IV .Q24H [facility] Rx#: [id number] Furosemide 250 mg In 216.417 Sodium Chloride 0.9% 225 ml @ 5 MG/HR 5 mls/hr IVP .Q24H [facility] Rx#:[id number] Oral 100 Output: Urine 1220 1045 535 Other: Voiding Method Indwelling Catheter Indwelling Catheter Indwelling Catheter - Exam Physical Exam: Revealed an 81-year-old white male looks chronically ill, frail, on 50% Ventimask, and O2 saturations are marginal. Patient is not in distress. HEENT:[Neck is supple.] [No neck masses.] [No thyromegaly.] [No JVD.] Chest: [Few crackles at the bases..] Cardiac Exam: [Irregular irregular rhythm, 3/6 systolic murmur throughout the precordium. Abdomen: [Soft, nontender, no megaly, no rebound, no guarding, normal bowel sounds.] Extremities: [No clubbing, 3+ bipedal edema, no cyanosis.] Neurological Exam: Slightly confused otherwise no focal neurologic deficit. - Labs CBC & Chem 7: 08/01/16 05:29 08/01/16 05:29 Labs: Abnormal Lab Results - Last 24 Hours (Table) 08/01/16 08/01/16 08/01/16 Range/Units 05:29 05:29 07:28 RBC 2.84 L (4.30-5.90) m/uL Hgb 9.4 L (13.0-17.5) gm/dL Hct 30.5 L (39.0-53.0) % MCV 107.6 H (80.0-100.0) fL MCHC 30.9 L (31.0-37.0) g/dL RDW 22.7 H (11.5-15.5) % PT 29.7 H (9.0-12.0) sec Carbon Dioxide 31 H (22-30) mmol/L BUN 37 H (9-20) mg/dL Glucose 111 H (74-99) mg/dL Microbiology - Last 24 Hours (Table) 07/31/16 02:12 Urine Culture - Final Urine,Catheterized Assessment and Plan Plan: Impression: 1 acute on chronic congestive heart failure most likely secondary to severe aortic stenosis and pulmonary hypertension. 2 history of chronic atrial fibrillation presently on anticoagulation therapy and ventricular rate seems to be well-controlled. 3 history of multiple comorbidities including chronic renal failure, suspect cardiorenal syndrome, history of hypothyroidism, chronic anemia, and history of mitral valve surgery. Recommendation: Continue Lasix drip, continue dopamine at 5 mcg/kg/m, continue bronchodilators, continue hemodynamic support, overall prognosis remains poor considering his profound valvular heart disease and the patient obviously is not an ideal candidate for any intervention. I would suggest seriously discussing with the family considering hospice. Patient could be transferred to a monitor bed today, discussed his condition with Dr. Borrego on the case. Time with Patient: Less than 30
[2016-08-01] MEDS: MORPHINE SULFATE 2 MG/ML SYRINGE IVP PRN (15:40)
[2016-08-01] MEDS: LORazepam 2 MG/ML SYRINGE IV PRN (16:56)
--- NOTE | 2016-08-01 17:56 | PN ---
Mr. Horton is an 81-year-old male status post coronary artery bypass grafting and mitral valve surgery, history of severe critical aortic stenosis, not a candidate for TAVR, who presented with symptoms of worsening congestive heart failure and hypotension. He continues to be hypotensive on dopamine. He has significant edema. He is in atrial fibrillation. His rate is controlled. He continues to be dyspneic and quite weak. His urine output is stable. He continues to be at this time in addition to the Coumadin on aspirin, IV Lasix in addition to IV dopamine to maintain blood pressure. His blood pressure is running in the 80s to 90s. Heart rate in the 90s. LUNGS: With decreased air exchange in the bases. HEART: Irregularly irregular. S1, S2, no S3, with systolic murmur 3/6, late peaking. No diastolic murmur. No rub. ABDOMEN: Soft, nontender. EXTREMITIES: 3+ edema. Lab data revealed BUN and creatinine 37 and 1.1. Potassium 3.8. INR of 3.1, hemoglobin of 9.4. IMPRESSION: 1. Endstage heart failure in a patient with severe critical aortic stenosis, not a candidate for intervention. 2. Status post coronary artery bypass grafting and mitral valve surgery. 3. Atrial fibrillation. 4. Hypotension. RECOMMENDATIONS: We will continue supportive care. Unfortunately the prognosis is quite poor. I discussed findings with the family and have recommended hospice care.
[2016-08-01] MEDS: ASPIRIN 81 MG CHEW PO SCH (21:19)
[2016-08-01] MEDS: CYANOCOBALAMIN 500 MCG TAB PO SCH (21:19)
[2016-08-01] MEDS: ASCORBIC ACID 500 MG TAB PO SCH (21:19)
[2016-08-01] MEDS: MELATONIN 3 MG TABLET PO SCH (21:19)
[2016-08-01] MEDS: POTASSIUM CHLORIDE 10 MEQ, LIDOCAINE 2% INJ 10 MG in SODIUM CHLORIDE 0.9% 100 ML IV SCH (22:50)
[2016-08-02] MEDS: POTASSIUM CHLORIDE 10 MEQ, LIDOCAINE 2% INJ 10 MG in SODIUM CHLORIDE 0.9% 100 ML IV SCH (00:01)
[2016-08-02] MEDS: MORPHINE SULFATE 2 MG/ML SYRINGE IVP PRN ×3 (00:07→19:48)
[2016-08-02 05:10] LABS: Anisocytosis Moderate; Basophils % (A) 0 %; CH 32.6; CHCM 30.8; Eosinophils # (A) 0.3 k/uL (0-0.7); Eosinophils % (A) 3 %; HCT 27.2 % (39.0-53.0); HDW 3.35; HGB 8.5 gm/dL (13.0-17.5); Hypochromasia Marked; Luc # (Auto) 0.19; Luc % (Auto) 2; Lymphocytes # (A) 0.9 k/uL (1.0-4.8); Lymphocytes % (A) 10 %; MCH 33.4 pg (25.0-35.0); MCHC 31.1 g/dL (31.0-37.0); MCV 107.2 fL (80.0-100.0); Macrocytosis Marked; Mean Platelet Volume 7.8; Monocytes # (A) 0.7 k/uL (0-1.0); Monocytes % (A) 8 %; Neutrophils # (A) 6.4 k/uL (1.3-7.7); Neutrophils % (A) 76 %; RBC 2.54 m/uL (4.30-5.90); RDW 22.1 % (11.5-15.5); WBC 8.4 k/uL (3.8-10.6); WBC (Perox) 9.06
[2016-08-02 05:26] LABS: Anion Gap 13 mmol/L; Calcium 8.5 mg/dL (8.4-10.2); Carbon Dioxide 26 mmol/L (22-30); Chloride 102 mmol/L (98-107); Glucose 99 mg/dL (74-99); Non-African American GFR(MDRD) >60 (>60 ml/min/1.73 sqM); Sodium 141 mmol/L (137-145)
[2016-08-02 05:35] LABS: Blood Urea Nitrogen 34 mg/dL (9-20); Magnesium 2.1 mg/dL (1.6-2.3); Phosphorous 3.7 mg/dL (2.5-4.5); Potassium 4.4 mmol/L (3.5-5.1)
[2016-08-02] MEDS: LEVOTHYROXINE 50 MCG TAB PO SCH (05:50)
[2016-08-02 06:03] LABS: INR 2.9 (<1.1); Prothrombin Time 28.3 sec (9.0-12.0)
[2016-08-02] MEDS: FERROUS SULFATE 325 MG TAB PO SCH ×3 (06:17→18:09)
[2016-08-02] MEDS: POTASSIUM CHLORIDE ER 20 MEQ TAB.ER PO SCH ×2 (08:49→19:54)
[2016-08-02] MEDS: ALLOPURINOL 300 MG TAB PO SCH (08:50)
[2016-08-02] MEDS ORDERED: FUROSEMIDE 10 MG/ML 10 ML VIAL IV STA (09:14)
--- NOTE | 2016-08-02 09:16 | XR ---
EXAMINATION TYPE: XR chest 1V portable DATE OF EXAM: 08/02/2016 6:46 AM Comparison: 07/31/2016 Clinical History: 81-year-old male follow-up Findings: Heart remains mildly enlarged. Median sternotomy wires are present with prosthetic aortic valve. Cont inued diffuse interstitial opacities as well as patchy areas of airspace opacity especially in the ri ght greater than left lower lungs. Similar elevation of the right hemidiaphragm. Impression: Overall stable exam, CHF with areas of pulmonary edema versus multifocal pneumonia.
--- NOTE | 2016-08-02 11:51 | PN ---
DATE OF SERVICE: 08/01/2016 This 81-year-old gentleman was admitted with CHF acute exacerbation with significant aortic stenosis. Also the patient is still hypotension. and then the blood pressure dropped again. He was put back on 8 mcg. The family is also contemplating possible transfer to [facility] also. The patient is being closely monitored at this time. Multiple consultants including Dr. Ahumada are following the patient closely. The patient is NO CODE, NO CPR, NO VENT. PAST MEDICAL HISTORY: Reviewed. REVIEW OF SYSTEMS: CARDIOVASCULAR: As mentioned. GI: As mentioned. : As mentioned. NERVOUS SYSTEM: No focal deficits. Current medications are reviewed and include: 1. Tylenol 650 every 4 p.r.n. 2. DuoNeb q.i.d. and p.r.n. 3. Zyloprim 300 mg daily. 4. Vitamin C 1000 mg. 5. Aspirin 81 mg. 6. Vitamin D3, 1000 daily. 7. Vitamin B12, 500 mg p.o. daily. 8. Dopamine drip. 9. Iron sulfate 325 mg daily. 10. Lasix drip. 11. Synthroid 50 mcg p.o. 12. Ativan p.r.n. 13. Melatonin p.r.n. 14. Nitrostat. 15. K-Dur 20 mEq p.o. b.i.d. 16. Senokot. PHYSICAL EXAMINATION: GENERAL: The patient is alert, oriented x3. VITAL SIGNS: Pulse 100, blood pressure 71/50, respirations 20, temperature 99.1, pulse ox 94% on 2 liters. HEENT: Conjunctiva normal. Oral mucosa moist. CARDIOVASCULAR SYSTEM: S1 and S2 muffled. LUNGS: Breath sounds diminished at the bases. Few scattered crackles. No rhonchi. ABDOMEN: Soft, obese, nontender. EXTREMITIES: Legs bilateral edema. NERVOUS SYSTEM: Diffusely weak. SKIN: No ulcers. LABS: WBC 8.3, hemoglobin 9.4. INR is 3.1. ASSESSMENT: 1. Congestive heart failure acute exacerbation, with acute on chronic systolic and diastolic dysfunction with cardiogenic shock, on dopamine drip and Lasix drip. 2. Acute hypoxic respiratory failure secondary to congestive heart failure. 3. Severe aortic stenosis with peak mean gradients of 127 and 93. 4. Mitral stenosis with mitral valve area of 2.3 square centimeters. 5. Congestive heart failure ejection fraction 50% to 55%. 6. Moderate to severe tricuspid regurgitation, severely dilated left atrium on 2-D echo. 7. Change in mental status, metabolic encephalopathy, secondary to congestive heart failure as well as severe pulmonary hypertension. 8. Hypothyroidism. 9. Chronic kidney disease stage III, secondary to hypertension. 10. Chronic atrial fibrillation, persistent. 11. Coumadin monitoring. 12. Mild Coumadin coagulopathy. 13. History of aortic root replacement and mitral repair. 14. Hypoalbuminemia with mild to moderate protein calorie malnutrition. 15. NO CODE, NO CPR, NO VENT. RECOMMENDATIONS: Continue current medications. Continue symptomatic treatment. Continue with Lasix. Continue with Doppler. Adjust the blood pressure medications. Currently the patient is NO CODE, NO CPR, NO VENT. Continue the rest of the medications. Prognosis guarded because of multiple complex medical issues as mentioned above. Closely follow with cardiology in the ICU. Guarded prognosis. Further recommendations to follow. MTDD
[2016-08-02] MEDS: CHOLECALCIFEROL 1,000 UNIT TAB PO SCH (11:56)
[2016-08-02] MEDS: FUROSEMIDE 250 MG in SODIUM CHLORIDE 0.9% 225 ML IVP SCH ×2 (11:57→23:47)
[2016-08-02] MEDS: LORazepam 2 MG/ML SYRINGE IV PRN (13:28)
--- NOTE | 2016-08-02 14:02 | P.PN ---
Subjective Principal diagnosis: Acute congestive heart failure and hypotension This is an 81-year-old white male with history of multiple medical problems including chronic atrial fibrillation, severe aortic stenosis, previous history of mitral valve repair, history of severe secondary pulmonary hypertension, hypothyroidism, LV dysfunction and history of congestive heart failure in June of this year. Patient was felt to be not a good candidate for Tavr, at the [facility]. Patient presented to the ER from [facility] [place] [facility] [place] with multiple complaints including increased shortness of breath, significant swelling of the legs, fluid retention and 55 pound weight gain over the last 1 month, and abnormal chest x-ray showing evidence of congestive heart failure. Which is not surprising considering his cardiac history. Upon presentation, the patient was noted to have low hemoglobin of 8.2, elevated INR of 4.0, elevated pro BNP level of over 7000, creatinine of 1.53, relatively normal troponins, patient was in atrial fibrillation with controlled ventricular response, and right bundle branch block. His recent echo showed severe aortic stenosis and mitral valve stenosis as well as moderate severe tricuspid regurgitation with severe pulmonary hypertension. Patient was transferred to the ICU from [facility] because of worsening shortness of breath, and hemodynamic instability. Hence the patient was placed on dopamine, and on Lasix drip at 5 mcg/kg/m. In the last 10 hours since admission, patient was noted to be in a negative balance roughly about 2500 mL. Hence I cut down his Lasix drip to 5 mg per hour. Kept him on the same bronchodilators for his COPD , I also kept him on dopamine at 5 mcg/kg/m, and I discussed his condition with his daughter who has the power of attorney at law, and she was requesting to discuss his condition with the admitting physician to possibly transfer him to another hospital where his float operator works. I suggested discussing this with the hospitalist and patient is hemodynamically stable enough for transfer as far as I'm concerned. Patient was reevaluated today on 07/31/2016, he remains on dopamine at 8 mcg/kg/ m, patient feels generally weak and miserable. His chest x-ray continues to show pulmonary edema in spite of negative fluid balance, and over the last 2 days, he is at least -4 L. Patient remains swollen and edematous. Chest x-ray continues to show evidence of congestive heart failure. Blood pressure remains marginal and I discussed his condition with Dr. Borrego will be seeing the patient shortly after my evaluation. In the meantime we kept him on dopamine and we kept him on Lasix drip at 5 mg per hour. Labs were reviewed hemoglobin is 9.2 diabetes he got is 8.7. His renal profile showed slight improvement with a BUN of 44 creatinine of 1.20. And I believe the improvement is most likely secondary to better perfusion using dopamine. His urine culture is pending. Reevaluated today on 08/01/2016, patient is now on 5 mcg/kg/m of dopamine. He seems to be hemodynamically stable, and I don't think we need to titrate the dopamine any further. Patient remains on Lasix drip at 5 mg per hour, he seems to be more comfortable, and he seems to be maintaining adequate the blood pressure and renal perfusion as long as he is on dopamine at this dose. Patient is still in negative balance over the last 2 days, labs were reviewed and his hemoglobin is 9.4. His BUN is improved down to 37 and his creatinine is also improved down to 1.10. Considering the improvement noted, I believe the patient could be transferred out to [facility] placed on a monitor bed, and keep the dopamine dose the same for the next 24 or 48 hours. We know in fact that his overall prognostic picture is poor, and eventually may have to consider hospice on this patient. Patient was reevaluated today on 08/02/2016, remains on dopamine between 5-8 mcg/ kg/m. Patient was hypotensive on a lower dose, hence dopamine was placed back on a higher dose. Patient was also noted to have worsening chest x-ray and worsening pulmonary edema. Remains on Lasix however I increased the dose from 5 mg per hour to 10 mg per hour. I even recommended placing the patient on BiPAP, I believe his congestive heart failure is getting worse. Patient remains no code, and I still believe the patient should be made comfort care eventually. Apparently the daughter has not decided to make him comfort care yet. She was told by the float operator that his condition is terminal. Labs today were reviewed, hemoglobin is 8.5. Electrolytes are normal, BUN is 34 creatinine is 1.1 patient remains in negative fluid balance he is negative over 4 L in the last 3 days. Objective - Vital Signs Vital signs: Vital Signs Temp 97.7 F 08/02/16 12:00 Pulse 90 08/02/16 12:00 Resp 22 01/02/17 12:00 BP 86/60 08/02/16 12:00 Pulse Ox 96 08/02/16 12:00 Intake & Output 08/01/16 08/02/16 08/02/16 18:59 06:59 18:59 Intake Total 396.417 833.1 358.333 Output Total 795 750 505 Balance -398.583 83.1 -146.667 Weight 101.8 kg Intake: IV 180 533.1 237.5 0.9 @ 10 120 120 50 DOPamine DRIP 800 mg In 353.1 152.5 Dextrose/Water 1 500ml. bag @ 5 MCG/KG/MIN 19.65 mls/hr IV .Q24H [facility]AN Rx#: [id number] Furosemide 250 mg In 60 60 35 Sodium Chloride 0.9% 225 ml @ 10 MG/HR 10 mls/hr IVP .Q24H LOGAN Rx#: [id number] Intake, IV Titration 216.417 200 120.833 Amount Furosemide 250 mg In 216.417 120.833 Sodium Chloride 0.9% 225 ml @ 10 MG/HR 10 mls/hr IVP .Q24H LOGAN Rx#: [id number] Potassium Chloride 10 meq 200 Lidocaine 2% Inj 10 mg In Sodium Chloride 0.9% 100 ml @ 100 mls/hr IV Q1HR LOGAN Rx#:[id number] Oral 100 0 Output: Urine 795 750 505 Other: Voiding Method Indwelling Catheter Indwelling Catheter Indwelling Catheter - Exam Physical Exam: Revealed an 81-year-old white male looks chronically ill, frail, on BiPAP and O2 saturations are marginal. Patient is not in distress. HEENT:[Neck is supple.] [No neck masses.] [No thyromegaly.] [No JVD.] Chest: [Few crackles at the bases..] Cardiac Exam: [Irregular irregular rhythm, 3/6 systolic murmur throughout the precordium. Abdomen: [Soft, nontender, no megaly, no rebound, no guarding, normal bowel sounds.] Extremities: [No clubbing, 3+ bipedal edema, no cyanosis.] Neurological Exam: Slightly confused otherwise no focal neurologic deficit. - Labs CBC & Chem 7: 08/02/16 04:24 08/02/16 04:24 Labs: Abnormal Lab Results - Last 24 Hours (Table) 08/02/16 08/02/16 08/02/16 Range/Units 04:24 04:24 05:30 RBC 2.54 L (4.30-5.90) m/uL Hgb 8.5 L (13.0-17.5) gm/dL Hct 27.2 L (39.0-53.0) % MCV 107.2 H (80.0-100.0) fL RDW 22.1 H (11.5-15.5) % Lymphocytes # 0.9 L (1.0-4.8) k/uL PT 28.3 H (9.0-12.0) sec BUN 34 H (9-20) mg/dL Microbiology - Last 24 Hours (Table) 07/31/16 02:12 Urine Culture - Final Urine,Catheterized Assessment and Plan Plan: Impression: 1 acute on chronic congestive heart failure most likely secondary to severe aortic stenosis and pulmonary hypertension. 2 history of chronic atrial fibrillation presently on anticoagulation therapy and ventricular rate seems to be well-controlled. 3 history of multiple comorbidities including chronic renal failure, suspect cardiorenal syndrome, history of hypothyroidism, chronic anemia, and history of mitral valve surgery. 4 acute hypoxic respiratory failure requiring BiPAP secondary to congestive heart failure mostly. Secondary to significant aortic valve disease. Recommendation: Continue Lasix drip, however, I increased the dose to 10 mg per hour. continue dopamine at 8 mcg/kg/m, continue bronchodilators, continue hemodynamic support, overall prognosis remains poor considering his profound valvular heart disease and the patient obviously is not an ideal candidate for any intervention. I would suggest seriously discussing with the family considering hospice. Keep in the ICU for now. Time with Patient: Less than 30
[2016-08-02] MEDS: DOPamine DRIP 800 MG in DEXTROSE/WATER 1 500ML.BAG IV SCH (18:10)
[2016-08-02] MEDS: ASCORBIC ACID 500 MG TAB PO SCH (19:53)
[2016-08-02] MEDS: CYANOCOBALAMIN 500 MCG TAB PO SCH (19:53)
[2016-08-02] MEDS: ASPIRIN 81 MG CHEW PO SCH (19:54)
[2016-08-02] MEDS: MELATONIN 3 MG TABLET PO SCH (19:54)
[2016-08-03] MEDS: MORPHINE SULFATE 2 MG/ML SYRINGE IVP PRN ×6 (00:48→22:16)
--- NOTE | 2016-08-03 05:56 | PN ---
DATE OF SERVICE: 08/02/2016 This 81-year-old gentleman admitted with CHF acute exacerbation also had change in mental status, metabolic encephalopathy. Patient also had acute respiratory failure. The patient is currently on BiPAP at this time. Pulse ox dropping. Today chest x-ray showed worsening also. The patient is on Lasix drip at 10 mg and dopamine anywhere from 4 to 10 mcg also. The patient is on BiPAP as mentioned earlier. PAST MEDICAL HISTORY: Reviewed. REVIEW OF SYSTEMS: Could not be taken because of patient's change in mental status. The current medications are reviewed and include: 1. Tylenol 650 q.4 p.r.n. 2. DuoNeb q.i.d. and p.r.n. 3. Zyloprim 300 mg p.o. daily. 4. Vitamin C 1000 mg q.h.s. 5. Aspirin 81 mg daily. 6. Dulcolax 10 mg daily. 7. Vitamin D3, 1000 daily. 8. Vitamin B-12, 500 mcg q.h.s. 9. Dopamine drip. 10. Iron sulfate 325 mg t.i.d. 11. Lasix drip. 12. Synthroid 50 mcg p.o. daily. 13. Ativan. 14. Melatonin. 15. Nitrostat. 16. K-Dur. 17. Senokot. PHYSICAL EXAMINATION: The patient is currently sedated. Pulse is 90, blood pressure 86/60, respirations 22, temperature 97.7, pulse ox 96% on BiPAP 85% FiO2. HEENT: Conjunctivae normal. Oral mucosa moist. NECK: No jugular venous distention. CARDIOVASCULAR SYSTEM: S1 and S2, muffled. Ejection systolic murmur. No S3, no S4. RESPIRATORY: Breath sounds diminished at the bases. Bilateral scattered rhonchi and few crackles and expiratory wheezing also present. ABDOMEN: Soft, nontender. LEGS: Bilateral leg edema. NERVOUS SYSTEM: Diffusely weak. LAB INVESTIGATIONS: WBC 8.4, hemoglobin is 8.5, MCV 107.2. INR is 2.9. ASSESSMENT: 1. Congestive heart failure acute exacerbation with acute on chronic systolic and diastolic dysfunction with cardiogenic shock on dopamine drip and Lasix drip. 2. Acute hypoxic respiratory failure secondary to congestive heart failure, acute exacerbation. 3. Severe aortic stenosis with peak and mean gradient of 127 and 93. 4. Mitral stenosis with mitral area of 2.3 square centimeters. 5. History of congestive heart failure, ejection fraction 50% to 55%. 6. Moderate to severe tricuspid regurgitation and severely dilated left atrium on the 2-D echocardiogram . 7. Change in mental status, metabolic encephalopathy, secondary to congestive heart failure as well as severe pulmonary hypertension. 8. Hypothyroidism. 9. Chronic kidney disease stage III secondary to hypertension. 10. Chronic atrial fibrillation, persistent. 11. Coumadin monitoring. 12. Coumadin coagulopathy. 13. History of aortic root replacement and mitral repair. 14. Hypoalbuminemia with mild to moderate protein calorie malnutrition. 15. NO CODE, NO CPR, NO VENT. RECOMMENDATIONS AND DISCUSSION: In this 81-year-old gentleman who presented with multiple complex medical issues, will monitor the patient closely. Continue the current medications. Continue symptomatic treatment. Continue with the diuretics and with BiPAP. Monitor fluid closely. Hold Coumadin for now. Prognosis guarded because of multiple complex medical issues. Further recommendations to follow. JEREMIASD
[2016-08-03 06:09] LABS: Anion Gap 9 mmol/L; Blood Urea Nitrogen 36 mg/dL (9-20); Calcium 8.6 mg/dL (8.4-10.2); Carbon Dioxide 29 mmol/L (22-30); Chloride 103 mmol/L (98-107); Glucose 92 mg/dL (74-99); INR 2.7 (<1.1); Magnesium 2.1 mg/dL (1.6-2.3); Non-African American GFR(MDRD) >60 (>60 ml/min/1.73 sqM); Phosphorous 3.7 mg/dL (2.5-4.5); Potassium 3.8 mmol/L (3.5-5.1); Sodium 141 mmol/L (137-145)
[2016-08-03 06:32] LABS: Anisocytosis Moderate; Basophils % (A) 1 %; CH 31.9; CHCM 28.6; Eosinophils # (A) 0.3 k/uL (0-0.7); Eosinophils % (A) 5 %; HCT 29.4 % (39.0-53.0); HDW 3.09; HGB 8.7 gm/dL (13.0-17.5); Hypochromasia Marked; Luc # (Auto) 0.23; Luc % (Auto) 4; Lymphocytes # (A) 0.7 k/uL (1.0-4.8); Lymphocytes % (A) 11 %; MCH 33.2 pg (25.0-35.0); MCHC 29.5 g/dL (31.0-37.0); Macrocytosis Marked; Mean Platelet Volume 7.7; Monocytes # (A) 0.5 k/uL (0-1.0); Monocytes % (A) 8 %; Neutrophils # (A) 4.6 k/uL (1.3-7.7); Neutrophils % (A) 72 %; RBC 2.61 m/uL (4.30-5.90); RDW 21.3 % (11.5-15.5); WBC 6.5 k/uL (3.8-10.6); WBC (Perox) 6.72
[2016-08-03 06:36] LABS: MCV 112.6 fL (80.0-100.0)
[2016-08-03] MEDS: POTASSIUM CHLORIDE 10 MEQ, LIDOCAINE 2% INJ 10 MG in SODIUM CHLORIDE 0.9% 100 ML IV SCH ×2 (06:49→08:53)
--- NOTE | 2016-08-03 07:17 | PN ---
Mr. Horton is an 81-year-old male with end-stage heart failure with severe aortic stenosis that was not felt to be a candidate for any intervention including TAVR. Patient is becoming more short of breath and less awake. He continues to have episode of hypotension requiring dopamine. He continues to be on IV Lasix drip. Hemodynamically, he remains borderline. His blood pressure is running in the 80s with the heart in the 90s. LUNGS: With rales at the bases. HEART: Irregular, irregular. S1, S2, no S3 with systolic murmur heard at the base, ejection type, late peaking. No diastolic murmur. ABDOMEN: Soft, nontender. EXTREMITIES: +1 edema. Lab data revealed hemoglobin of 8.5. INR of 2.9. BUN and creatinine 34 and 1.1. IMPRESSION: 1. End-stage heart failure with severe aortic stenosis. 2. Status post coronary artery bypass grafting and mitral valve surgery. 3. Chronic atrial fibrillation. 4. Hypertension. RECOMMENDATIONS: I have discussed again with the family the findings. I have discussed with them again the recommendation regarding hospice care. They will further evaluate that and let us know. At this time unfortunately, the prognosis remains quite poor. He will continue IV dopamine and the dose of his IV Lasix will be increased.
[2016-08-03] MEDS: LEVOTHYROXINE 50 MCG TAB PO SCH (08:53)
[2016-08-03] MEDS ORDERED: LEVOTHYROXINE IVP 100 MCG/5 ML VIAL IV SCH (09:00)
--- NOTE | 2016-08-03 09:13 | XR ---
EXAMINATION TYPE: XR chest 1V portable DATE OF EXAM: 08/03/2016 6:38 AM COMPARISON: 08/02/2016 INDICATION: Follow-up previous abnormal chest TECHNIQUE: Single frontal view of the chest is obtained. FINDINGS: The heart size is normal. There is increasing prominence the pulmonary vascular markings. Scattered infiltrates are present. IMPRESSION: 1. Scattered infiltrates which are nonspecific. Correlate for pulmonary edema and pneumonia. Continue d follow-up is recommended.
--- NOTE | 2016-08-03 09:53 | P.PN ---
Subjective Progress note dated this 08/03/2016 X This is a patient was seen yesterday by Dr. Ahumada. This is an 81-year-old gentleman who was admitted back on 1228. He came with a diagnosis of congestive heart failure mental status changes anasarca. Currently is he's on 10 L high flow. He is also getting BiPAP at 14 and 6 with 50% FiO2 primarily at nighttime. Remains on dopamine at 4 mics per kilogram per minute Lasix at 10 mg an hour and 0.9 IV at 5 mL an hour. Apparently there is some mild possibility the patient being transferred to [place] because as were his consulting it architect is or the patient be made a hospice or comfort care only. He is a DO NOT RESUSCITATE. His diagnoses include acute on chronic CHF with severe aortic stenosis and pulmonary hypertension, chronic atrial fibrillation, history of chronic renal failure with cardiorenal syndrome hypothyroidism chronic anemia mitral valve surgery. The patient is doing poorly. Again were trying to decide whether or not the patient should be transferred to [place] to see his own consulting it architect O whether or not this I will agree to make the patient hospice care. Objective - Vital Signs Vital signs: Vital Signs Temp 97.8 F 08/03/16 08:00 Pulse 92 08/03/16 09:15 Resp 13 08/03/16 09:15 BP 84/63 08/03/16 09:15 Pulse Ox 96 08/03/16 09:15 Intake & Output 08/02/16 08/03/16 08/03/16 18:59 06:59 18:59 Intake Total 1206.923 725.199 252 Output Total 1455 705 275 Balance -248.077 20.199 -23 Weight 101.1 kg 101.1 kg Intake: IV 574.3 386.5 52 0.9 @ 10 130 110 30 DOPamine DRIP 800 mg In 329.3 32 Dextrose/Water 1 500ml. bag @ 5 MCG/KG/MIN 19.65 mls/hr IV .Q24H [facility] Rx#: [id number] Furosemide 250 mg In 115 110 10 Sodium Chloride 0.9% 225 ml @ 10 MG/HR 10 mls/hr IVP .Q24H [facility] Rx#: [id number] dopamine infusion 134.5 12 Intake, IV Titration 632.623 288.699 200 Amount DOPamine DRIP 800 mg In 511.79 170.366 Dextrose/Water 1 500ml. bag @ 5 MCG/KG/MIN 19.65 mls/hr IV .Q24H [facility]AN Rx#: [id number] Furosemide 250 mg In 120.833 118.333 Sodium Chloride 0.9% 225 ml @ 10 MG/HR 10 mls/hr IVP .Q24H [facility] Rx#: [id number] Potassium Chloride 10 meq 200 Lidocaine 2% Inj 10 mg In Sodium Chloride 0.9% 100 ml @ 100 mls/hr IV Q1HR [facility]AN Rx#:[id number] Oral 0 50 0 Output: Urine 1455 705 275 Other: Voiding Method Indwelling Catheter Indwelling Catheter - Exam The patient is quite lethargic and somnolent. Does arouse. Does not appear to be in any acute distress. HEENT examination is grossly unremarkable. Mucous membranes are moist. Neck supple. Full range of motion. No adenopathy. Cardiac examination reveals a regular rhythm rate. He's got a 3/6 systolic murmur. Lungs reveal crackles at the bases. Sounds equal. Abdomen soft bowel sounds are heard. Extremities reveal significant edema probably 2-3+ pitting. - Labs CBC & Chem 7: 08/03/16 05:15 08/03/16 05:15 Labs: Abnormal Lab Results - Last 24 Hours (Table) 08/03/16 08/03/16 08/03/16 Range/Units 05:15 05:15 05:15 RBC 2.61 L (4.30-5.90) m/uL Hgb 8.7 L (13.0-17.5) gm/dL Hct 29.4 L (39.0-53.0) % MCV 112.6 H D (80.0-100.0) fL MCHC 29.5 L (31.0-37.0) g/dL RDW 21.3 H (11.5-15.5) % PT 26.0 H (9.0-12.0) sec BUN 36 H (9-20) mg/dL Assessment and Plan (1) Anasarca Status: Acute (2) Congestive heart failure Status: Acute (3) Renal insufficiency Status: Acute (4) Severe aortic stenosis Status: Acute (5) Atrial fibrillation with RVR Status: Acute (6) Congestive heart failure (CHF) Status: Acute (7) HTN (hypertension) Status: Acute (8) Hyperlipemia Status: Acute (9) Hyponatremia Status: Acute (10) Peripheral edema Status: Acute (11) S/P MVR (mitral valve repair) Status: Acute (12) Severe aortic stenosis Status: Acute Plan: Plan The patient apparently will be transferred to [facility]. With the son decided. No additional recommendations are made at this time. The patient can be transferred probably by ground ambulance. The patient is on dopamine and Lasix but seemed relatively stable otherwise. The patient is a DO NOT RESUSCITATE. Arrangements will be made. Time with Patient: Greater than 30
[2016-08-03 10:25] LABS: Manual Review Performed; Toxic Granulation Present
[2016-08-03] MEDS: FERROUS SULFATE 325 MG TAB PO SCH ×2 (10:57→12:43)
[2016-08-03] MEDS: ALLOPURINOL 300 MG TAB PO SCH (10:57)
[2016-08-03] MEDS: POTASSIUM CHLORIDE ER 20 MEQ TAB.ER PO SCH (11:00)
[2016-08-03] MEDS: CHOLECALCIFEROL 1,000 UNIT TAB PO SCH (12:43)
--- NOTE | 2016-08-03 17:35 | PN ---
DATE OF SERVICE: 08/03/2016 This 81-year-old gentleman who was admitted with CHF, acute exacerbation, also had acute hypoxic respiratory failure. The patient also had severe cardiogenic shock and severe aortic stenosis. The family wanted the patient to be transferred to [facility]. I discussed the case at length with Dr. Marrufo, the patient's book shelver, who recommended no transfer and informed me that the patient has had extensive workup and patient is not a surgical candidate and recommended comfort measures. Dr. Mcnulty is also talking with the patient and the family as well as the legal guardian. Past medical history reviewed. Review of systems could not be taken; the patient is confused. Current medications are reviewed and noted: 1. Tylenol. 2. DuoNeb. 3. Zyloprim. 4. Vitamin C. 5. Dulcolax. 6. Vitamin D3. 7. Iron sulfate. 8. Synthroid. 9. Melatonin. 10. Morphine. 11. K-Dur. 12. Lidocaine. 13. Senokot. PHYSICAL EXAMINATION: Patient is alert and oriented x2. Pulse 90, blood pressure 84/59, respiration 21, temperature normal, pulse ox 92% on room air. HEENT: Conjunctivae normal. NECK: No jugular venous distention. CARDIOVASCULAR SYSTEM: S1, S2 muffled. Ejection systolic murmur present. RESPIRATORY SYSTEM: Breath sounds diminished at the bases. A few scattered rhonchi and crackles. ABDOMEN: Soft, nontender. LEGS: No edema. No swelling. NERVOUS SYSTEM: No focal deficit. LABS: Hemoglobin 8.7. INR 2.7. ASSESSMENT: 1. Congestive heart failure, acute exacerbation, with acute on chronic systolic and diastolic dysfunction with cardiogenic shock, on dopamine drip and Lasix drip. 2. Acute hypoxic respiratory failure secondary to congestive heart failure, acute exacerbation. 3. Severe aortic stenosis with a peak and mean gradient of 127 and 93. 4. Mitral stenosis with a mitral area of 2.3 square centimeters. 5. History of congestive heart failure, ejection fraction 50% to 55%. 6. Moderate to severe tricuspid regurgitation and a severely dilated left atrium on 2-D echocardiogram. 7. Change in mental status, metabolic encephalopathy secondary to congestive heart failure as well as severe pulmonary hypertension. 8. Hypothyroidism. 9. Chronic kidney disease, stage III, secondary to hypertension. 10. Chronic atrial fibrillation, persistent. 11. Coumadin monitoring. 12. Coumadin coagulopathy. 13. History of aortic replacement and mitral repair. 14. Hypoalbuminemia with mild to moderate protein-calorie malnutrition. 15. NO CODE, NO CPR, NO VENT. 16. Comfort measures. RECOMMENDATIONS AND DISCUSSION: In this 81-year-old gentleman who presented with multiple complex medical issues, at this time the patient is not improving despite aggressive medical treatment. Dr. Mcnulty has talked with the family and recommended comfort measures and discontinuing Lasix and dopamine drip. Continue to monitor. Overall prognosis is extremely guarded because of multiple complex medical issues, as mentioned earlier. Discussed the family and discussed with Dr. Marrufo. Closely follow. Further recommendations to follow.
[2016-08-03] MEDS: LORazepam 2 MG/ML SYRINGE IV PRN (23:44)
[2016-08-04 00:40] VITALS: BP 57/44; PULSE 86; RESP 17; TEMP 98.9
[2016-08-04] MEDS: MORPHINE SULFATE 2 MG/ML SYRINGE IVP PRN (05:37)
--- NOTE | 2016-08-05 13:27 | DS ---
DATE OF ADMISSION: 08/04/2016 DATE OF DISCHARGE: 08/04/2016 FINAL DIAGNOSES: 1. Congestive heart failure acute exacerbation with acute on chronic systolic and diastolic dysfunction with Lasix drip. 2. Acute hypoxic respiratory failure secondary to congestive heart failure acute exacerbation and severe aortic stenosis with peak and mean gradient. 3. Aortic stenosis with 4. Congestive heart failure ejection fraction 50-55%. 5. Moderate to severe tricuspid regurgitation. 6. Severely dilated left atrium on the 2D echo. 7. change in mental status, metabolic encephalopathy, secondary to congestive heart failure as well as severe pulmonary hypertension. 8. History of hypothyroidism. 9. Chronic kidney disease Stage III secondary to hypertension. 10. Chronic atrial fibrillation 11. Coumadin monitoring. 12. Coumadin coagulopathy. 13. History of aortic valve replacement, mitral valve replacement. 14. Hypoalbuminemia with mild to moderate protein calorie malnutrition. 15. NO CODE, NO CPR, NO VENT, COMFORT MEASURES. DISCHARGE DISPOSITION: The patient will be transferred to inpatient hospice. HISTORY OF PRESENT ILLNESS: This 81 -year-old gentleman with a past medical history of multiple medical problems, admitted with CHF exacerbation. Patient was treated aggressively and because of lack of improvement, the patient will be transitioned to inpatient hospice at this time. Dr. Mcnulty had a detailed discussion with the power of sports attorney. The patient will be given morphine. MTDD
== END 2016-08-04 09:21 | disposition hospice, inpatient (51) | DRG 291 ==
LOC: EC 16:15 → 4MS4W 21:19 → 6ICU 07-29 10:59
PROVIDERS: ADMIT Internal Medicine; ATTEND Internal Medicine
PROC: 0T9B70Z Drainage of Bladder with Drainage Device, Via Natural or Artificial Opening (ICD-10-PCS; principal; 2016-07-28)
DX: I13.0 Hypertensive heart and chronic kidney disease with heart failure and stage 1 through stage 4 chronic kidney disease, or unspecified chronic kidney disease (principal); G93.41 Metabolic encephalopathy; J96.01 Acute respiratory failure with hypoxia; R57.0 Cardiogenic shock; E44.0 Moderate protein-calorie malnutrition; I95.9 Hypotension, unspecified; I48.1 Persistent atrial fibrillation; I27.2 Other secondary pulmonary hypertension; E87.1 Hypo-osmolality and hyponatremia; I50.43 Acute on chronic combined systolic (congestive) and diastolic (congestive) heart failure; I48.2 Chronic atrial fibrillation; E88.09 Other disorders of plasma-protein metabolism, not elsewhere classified; J84.10 Pulmonary fibrosis, unspecified; J44.9 Chronic obstructive pulmonary disease, unspecified; I08.3 Combined rheumatic disorders of mitral, aortic and tricuspid valves; N18.3 Chronic kidney disease, stage 3 (moderate); Z51.5 Encounter for palliative care; Z66 Do not resuscitate; D53.9 Nutritional anemia, unspecified; E03.9 Hypothyroidism, unspecified; I45.10 Unspecified right bundle-branch block; E78.5 Hyperlipidemia, unspecified; T45.515A Adverse effect of anticoagulants, initial encounter; R79.1 Abnormal coagulation profile; N18.9 Chronic kidney disease, unspecified; R53.1 Weakness; L98.9 Disorder of the skin and subcutaneous tissue, unspecified; I44.5 Left posterior fascicular block; Z82.49 Family history of ischemic heart disease and other diseases of the circulatory system; Z79.01 Long term (current) use of anticoagulants; Z95.2 Presence of prosthetic heart valve; Z95.1 Presence of aortocoronary bypass graft; Z68.31 Body mass index [BMI] 31.0-31.9, adult; Z88.0 Allergy status to penicillin; Z86.19 Personal history of other infectious and parasitic diseases; Z91.012 Allergy to eggs; Z91.010 Allergy to peanuts; Z79.899 Other long term (current) drug therapy
CPT/HCPCS: 36415; 71010; 71020; 80048; 80053; 80061; 81001; 82550; 82553; 83735; 83880; 84100; 84132; 84484; 85025; 85027; 85610; 85730; 87086; 93005; 94640; 94660; 96374; 99285

== ENCOUNTER 2016-08-04 09:25 | Inpatient (IN) | payer MEDICAID ==
--- NOTE | 2016-08-04 09:51 | P.PN ---
Subjective Progress note dated 08/04/2016 This is an 81-year-old patient who was seen by Dr. Shipley over the weekend. He apparently was made hospice yesterday. He came with a diagnosis of congestive heart failure and mental status changes with anasarca. The patient was stopped on all his usual medications yesterday. He was just placed on O2 2 L. Getting appointment 9 IV at 10 mL an hour and is getting morphine sulfate IV push when necessary. Middle long discussion with the family yesterday were able to do that. Anyway yesterday when I saw him he was on number different medications including a Lasix drip and dopamine. He is a DO NOT RESUSCITATE. There was some discussion that he was can be transferred to [facility] but apparently his on site coordinator. Sand Cutter Operator there did not want him. He has a history of acute on chronic CHF severe aortic stenosis pulmonary hypertension chronic atrial fibrillation chronic renal fire hypothyroidism and chronic anemia with mitral valve surgery in the past. Objective - Exam No acute distress, the patient is poorly responsive. Getting nasal O2. HEENT examination is grossly unremarkable. Next Neck supple. Full range of motion. Cardiovascular examination reveals regular rhythm rate. A 3/6 heart murmurs noted. Lungs reveal coarse rhonchi. Abdomen soft. Extremities reveal edema. Assessment and Plan (1) Anasarca Status: Acute (2) Atrial fibrillation with RVR Status: Acute (3) Community acquired pneumonia Status: Acute (4) Congestive heart failure Status: Acute (5) Congestive heart failure (CHF) Status: Acute (6) Diastolic CHF, acute on chronic Status: Acute (7) HTN (hypertension) Status: Acute (8) Hyponatremia Status: Acute (9) S/P AVR Status: Acute (10) S/P MVR (mitral valve repair) Status: Acute (11) Severe aortic stenosis Status: Acute Plan: Plan The patient will be made hospice. He'll follow-up my list. We'll C we can get him discharged to the general medical floor. No additional recommendations are made. Obvious his prognosis is very poor. Time with Patient: Less than 30
[2016-08-04] MEDS ORDERED: ACETAMINOPHEN SUPPOSITORY 650 MG SUPP RECTAL PRN (11:06)
[2016-08-04] MEDS ORDERED: BISACODYL 10 MG SUPP RECTAL PRN (11:07)
[2016-08-04] MEDS ORDERED: MORPHINE SULFATE 2 MG/ML SYRINGE IVP PRN (11:09)
[2016-08-04] MEDS ORDERED: ONDANSETRON 4 MG/2 ML VIAL IVP PRN (11:09)
[2016-08-04] MEDS ORDERED: LORazepam 2 MG/ML SYRINGE IV PRN (11:10)
[2016-08-04] MEDS ORDERED: SCOPOLAMINE 1.5MG/72HR PATCH TRANSDERM SCH (11:15)
--- NOTE | 2016-08-04 16:40 | DS ---
DATE OF ADMISSION: 08/04/2016 DATE OF DISCHARGE: SUMMARY: PRIMARY CAUSE OF : Severe aortic stenosis leading to congestive heart failure. OTHER DIAGNOSES: 1. Congestive heart failure, acute exacerbation, with acute on chronic systolic diastolic dysfunction with cardiogenic shock. 2. Acute hypoxic respiratory failure secondary to congestive heart failure, acute exacerbation. 3. Severe aortic stenosis with peak and mean gradient 127/93. 4. Mitral stenosis with mild valve area of 2.3 square centimeters. 5. Congestive heart failure ejection fraction 50% 55%. 6. Moderate to severe tricuspid regurgitation. 7. Severely dilated left atrium on 2-D echocardiogram. 8. Change in mental status. Metabolic encephalopathy, secondary to congestive heart failure as well as severe pulmonary hypertension. 9. Hypothyroidism. 10. Chronic kidney disease Stage III secondary to hypertension. 11. Chronic atrial fibrillation persistent. 12. Coumadin monitoring. 13. Coumadin coagulopathy. 14. History of aortic replacement 15. Hypoalbuminemia with mild to moderate protein calorie malnutrition. 16. NO CODE, NO CPR, AND COMFORT MEASURES. HISTORY OF PRESENT ILLNESS: This 81-year-old gentleman with a past medical history of multiple medical problems, was admitted to the hospital with CHF, exacerbation and multiple other medical problems secondary to severe aortic stenosis. The patient was treated symptomatically. despite. Significant improvement, the patient was not improving and the patient was made comfort measures and patient succumbed to the above-mentioned illnesses. The patient condition continued to be extremely grave throughout the hospital stay, please refer to the multiple consultants notes for further information. Also discussed with the patient's bench worker apprentice at length, Dr. Sapp who recommended comfort measures because the patient was not a surgical candidate as evidenced by the detailed investigation done elsewhere. ARIC
== END 2016-08-04 17:57 | disposition expired | DRG 291 ==
LOC: 6ICU 09:25
PROVIDERS: ADMIT Internal Medicine; ATTEND Internal Medicine
DX: I13.0 Hypertensive heart and chronic kidney disease with heart failure and stage 1 through stage 4 chronic kidney disease, or unspecified chronic kidney disease (principal); G93.41 Metabolic encephalopathy; J96.01 Acute respiratory failure with hypoxia; R57.0 Cardiogenic shock; E44.0 Moderate protein-calorie malnutrition; I27.2 Other secondary pulmonary hypertension; E88.09 Other disorders of plasma-protein metabolism, not elsewhere classified; I48.2 Chronic atrial fibrillation; J84.10 Pulmonary fibrosis, unspecified; E87.1 Hypo-osmolality and hyponatremia; I50.33 Acute on chronic diastolic (congestive) heart failure; Z66 Do not resuscitate; Z51.5 Encounter for palliative care; N18.3 Chronic kidney disease, stage 3 (moderate); I08.3 Combined rheumatic disorders of mitral, aortic and tricuspid valves; R79.1 Abnormal coagulation profile; D53.9 Nutritional anemia, unspecified; T45.515A Adverse effect of anticoagulants, initial encounter; E03.9 Hypothyroidism, unspecified; Z95.2 Presence of prosthetic heart valve; Z68.31 Body mass index [BMI] 31.0-31.9, adult; Z88.0 Allergy status to penicillin; Z91.012 Allergy to eggs; Z91.018 Allergy to other foods; Z87.01 Personal history of pneumonia (recurrent); Z82.49 Family history of ischemic heart disease and other diseases of the circulatory system; Z79.01 Long term (current) use of anticoagulants; Z79.899 Other long term (current) drug therapy